=== PATIENT | male | born 1945 | race Caucasian/White ===

== ENCOUNTER 2016-05-16 12:52 | Inpatient (IN) ==
[2016-05-16 14:04] LABS: MANUAL DIFF NEEDED? NO
[2016-05-16 14:26] LABS: BASO% 0.3 % (0.0-0.8); EOS# 0.21 X1000 (0.0-0.7); EOS% 3.3 % (0.0-10.0); HEMATOCRIT 33.6 % (42.0-52.0); HEMOGLOBIN 10.4 g/dL (14.0-18.0); IMM GRAN# 0.03 X1000 (0.0-0.04); IMM GRAN% 0.5 % (0.0-0.5); LYMPH% 9.5 % (20.5-51.1); MCH 26.1 PG (27-31); MCV 84.2 FL (81-99); MONO# 0.31 X1000 (0.11-0.59); MONO% 4.9 % (1.7-9.3); MPV 10.5 FL (7.4-10.4); NEUT% 81.5 % (42.2-75.2); PLT 227 X1000 (130-400); RBC 3.99 XMIL (4.7-6.1)
[2016-05-16 14:30] LABS: INR 1.07; PROTIME 11.3 Seconds (9.2-11.7); PTT 26.7 Seconds (22.0-36.0)
[2016-05-16 14:36] LABS: ALBUMIN 3.1 g/dL (3.5-5.0); CALCIUM 8.7 mg/dL (8.8-10.2); MAGNESIUM 1.8 mg/dL (1.5-2.7); POTASSIUM 3.2 mmol/L (3.5-5.1); TOTAL BILIRUBIN 0.35 mg/dL (0.20-1.00); TOTAL PROTEIN 6.7 g/dL (6.3-8.3)
--- NOTE | 2016-05-16 14:44 | PROVIDER DOCUMENTATION ---
HPI-Chest Pain - General Chief Complaint: Palpitations Stated Complaint: CP,HEART RACING Time Seen by Provider: 05/16/16 13:14 Source: patient, family Allergies/Adverse Reactions: Patient Allergies Allergy/AdvReac Type Severity Reaction Status Date / Time No Known Allergies Allergy Verified 05/16/16 13:12 Home Medications: Home Medication List Medication Instructions Recorded Confirmed Last Taken Type Alfuzosin E.r. [Uroxatral] 10 mg PO DAILY 04/09/15 05/16/16 05/15/16 History Atorvastatin Calcium [Lipitor] 20 mg PO QHS 04/09/15 05/16/16 05/15/16 History Cyanocobalamin 1,000 microgm IM DIRECTED 04/09/15 05/16/16 05/16/16 History Duloxetine [Cymbalta] 60 mg PO DAILY 04/09/15 05/16/16 05/16/16 History Finasteride 5 mg PO DAILY 04/09/15 05/16/16 05/16/16 History Glimepiride [Amaryl] 4 mg PO BID 04/09/15 05/16/16 05/16/16 History Lorazepam [Ativan] 0.5 mg PO QHS 04/09/15 05/16/16 05/15/16 History Omeprazole [Prilosec] 20 mg PO DAILY 04/09/15 05/16/16 05/15/16 History Carvedilol [Coreg] 6.25 mg PO BID #60 tablet 04/10/15 05/16/16 05/16/16 Rx Hydralazine [Apresoline] 100 mg PO TID #90 tablet 04/10/15 05/16/16 05/16/16 Rx Potassium Chloride 20 meq PO DAILY #0 04/10/15 03/21/16 05/16/16 Rx Aspirin [Aspirin EC] 81 mg PO DAILY #0 12/16/15 05/16/16 05/15/16 Rx Diltiazem C.d. [Cardizem Cd] 180 mg PO DAILY #30 capsule 03/28/16 05/16/1605/16 Rx Furosemide [Lasix] 80 mg PO BID #60 tablet 03/28/16 05/16/16 05/16/16 Rx Iron Carbonyl/Vit C/Vit B12/FA 1 each PO BID #60 tablet 03/28/16 05/16/16 Rx [Icar-C Plus] - History of Present Illness-CP Nature of Presenting Problem: 70 y/o M presented with chest pain that started this morning, left chest, non radiating associated with racing heart and progressive SOB. He denies sweating, nausea or dizziness. He was diagnosed with Afib last month but was taken off anticoagulants due to his hx of LGIB. Location: reports: substernal Chest Pain Radiation: reports: no radiation Quality of Pain: reports: pressure Severity in ED: mild Onset/Duration: 1-3 hours ago Timing: gone now Context/Activities at Onset: reports: rest Modifying Factors: improves with: nothing Associated Symptoms: reports: shortness of breath Similar Symptoms Previously?: Yes Recently Seen Here or By Another Healthcare Provider: Yes Review of Systems - Adult - REVIEW OF SYSTEMS - ADULT Constitutional: reports: no symptoms reported Eyes: reports: no symptoms reported Ears, Nose, Mouth & Throat: reports: no symptoms reported Cardiovascular: reports: chest pain, palpitations Respiratory: reports: dyspnea on exertion, shortness of breath Gastrointestinal: reports: no symptoms reported Genitourinary: reports: no symptoms reported Musculoskeletal: reports: no symptoms reported Neurological: reports: no symptoms reported Past History - Adult - PAST MEDICAL HISTORY-ADULT Review of Records: reports: Nursing Assessment Review Major Childhood Illnesses: reports: denies history Cardiovascular: reports: CHF, HTN Respiratory: reports: denies history Gastrointestinal: reports: hepatitis, hemorrhoids Genitourinary: reports: kidney disease, prostatitis Neurological: reports: CVA. denies: stroke deficits, dementia Endocrine/Immune: reports: Diabetes - IMMUNIZATION STATUS Childhood Immunizations: See Nurse Assessment Flu Vaccine: See Nurse Assessment Physical Exam-General - PHYSICAL EXAM-ADULT Initial Vital Signs Reviewed: Yes - CONSTITUTIONAL General Appearance: appears well, mild distress - EYES Eyes: PERRL/EOMI - HEAD, EARS, NOSE, MOUTH & THROAT HENMT: normocephalic/atraumatic - NECK Neck: full range of motion - RESPIRATORY Respiratory: lungs clear, increased rate - CARDIOVASCULAR Cardiovascular: tachycardia - GASTROINTESTINAL (ABDOMEN) Abdominal Exam: normal bowel sounds, soft - MUSCULOSKELETAL Extremity: swelling Peripheral Pulses: dorsalis-pedis (R): 1+, dorsalis-pedis (L): 1+ - NEUROLOGIC Neurologic: grossly normal - PSYCHIATRIC Psych/Mental Status: oriented x 3 Progress - PLAN OF CARE/RESULTS Progress/Plan/Lab Results: Vital Signs - 24 hr 05/16/16 05/16/16 05/16/16 12:59 13:16 13:36 Temperature 97.9 F Pulse Rate 153 H 106 H 112 H Respiratory 20 25 H 25 H Rate Blood Pressure 165/62 120/81 120/81 O2 Sat by Pulse 96 94 L 93 L Oximetry Laboratory Tests 05/16/16 05/16/16 05/16/16 13:50 13:50 13:50 WBC 6.30 RBC 3.99 L Hgb 10.4 L Hct 33.6 L MCV 84.2 MCH 26.1 L MCHC 31.0 L RDW Std Deviation 20.5 H Plt Count 227 MPV 10.5 H Immature Gran % (Auto) 0.5 Neut % (Auto) 81.5 H Lymph % (Auto) 9.5 L [place] % (Auto) 4.9 Eos % (Auto) 3.3 Baso % (Auto) 0.3 Immature Gran # (Auto) 0.03 Neut # (Auto) 5.13 Lymph # (Auto) 0.60 L [place] # (Auto) 0.31 Eos # (Auto) 0.21 Baso # (Auto) 0.02 PT INR PTT (Actin FS) Sodium 142 Potassium 3.2 L Chloride 103 Carbon Dioxide 25 Anion Gap 14 BUN 29 H Creatinine 2.3 H Estimated GFR/1.73 m2 28 BUN/Creatinine Ratio 13 Glucose 262 H Calculated Osmolality 298 Calcium 8.7 L Magnesium 1.8 Total Bilirubin 0.35 AST 13 ALT 12 Alkaline Phosphatase 105 Creatine Kinase 20 L Troponin T Erq-S-Gxcpwudhrtv Pept 1809 H Total Protein 6.7 Albumin 3.1 L Globulin 3.6 Albumin/Globulin Ratio 0.9 05/16/16 05/16/16 13:50 13:50 WBC RBC Hgb Hct MCV MCH MCHC RDW Std Deviation Plt Count MPV Immature Gran % (Auto) Neut % (Auto) Lymph % (Auto) [place] % (Auto) Eos % (Auto) Baso % (Auto) Immature Gran # (Auto) Neut # (Auto) Lymph # (Auto) [place] # (Auto) Eos # (Auto) Baso # (Auto) PT 11.3 INR 1.07 PTT (Actin FS) 26.7 Sodium Potassium Chloride Carbon Dioxide Anion Gap BUN Creatinine Estimated GFR/1.73 m2 BUN/Creatinine Ratio Glucose Calculated Osmolality Calcium Magnesium Total Bilirubin AST ALT Alkaline Phosphatase Creatine Kinase Troponin T 0.032 Neu-O-Xlobpsrsvsl Pept Total Protein Albumin Globulin Albumin/Globulin Ratio - EKG 1 Time of EKG reading by physician:: 13:10 EKG Read and Signed by:: Kiki Issa EKG Interpretation (*Must complete 3 of following elements*): Abnormal Rate: 131 Rhythm: irregular Comments: Atrial flutter vs Afib - CONSULTS/PCP/HOSPITALIST Notification #1 *Consult/PCP/Hospitalist*: Dr. Key Time Discussed: 14:46 Reason/Comments: Afib with chest pian Consult Disposition: Admit Departure - Departure Time of Disposition Order: 14:49 DIAGNOSIS: Atrial fibrillation and flutter, Chest pain at rest, Hypokalemia Disposition: ADMITTED INPATIENT 09 Certified Medical Emergency: Emergent Condition: Fair
--- NOTE | 2016-05-16 15:33 | Diag Imaging Result Document ---
PROCEDURE NAME: CHEST-2 VIEWS - 05/16/2016 TWO VIEWS OF THE CHEST: FINDINGS: There is blunting of the costophrenic angles with apparently more fluid on the left than the right. The heart size is at the upper limits of normal. Compared to 03/21/2016, there has been very little change. IMPRESSION: Bilateral small pleural effusions, stable since 03/21/2016.
--- NOTE | 2016-05-16 15:46 | EKG Report ---
Test Performed on : 05/16/2016 12:58:05 PM Test Reason : PALPITATIONS Blood Pressure : / mmHG Vent. Rate : 131 BPM Atrial Rate : 300 BPM P-R Int : 000 ms QRS Dur : 088 ms QT Int : 280 ms P-R-T Axes : 000 032 -83 degrees QTc Int : 413 ms Atrial flutter. with variable AV block. ST & T wave abnormality, consider inferolateral ischemia Abnormal ECG When compared with ECG of 22-MAR-2016 05:53, Atrial flutter. has replaced Atrial fibrillation. ST now depressed in Lateral leads T wave inversion now evident in Inferior leads Inverted T waves have replaced nonspecific T wave abnormality in Lateral leads Unconfirmed Result
[2016-05-16] MEDS: POTASSIUM CHLORIDE 40 MEQ in 1/2 NS 1,000 ML IV SCH ×2 (15:58→18:57)
--- NOTE | 2016-05-16 17:12 | HISTORY AND PHYSICAL ---
PRIMARY CARE PHYSICIAN: Dr. Meek. CHIEF COMPLAINT: Chest pain. HISTORY OF PRESENT ILLNESS: Mr. Kern is a 70-year-old male with a past medical history of hypertension, chronic kidney disease, CVA, coronary artery disease, sleep apnea, hypertension, atrial fibrillation, left renal mass, microcytic anemia and pulmonary nodule, who presents to the emergency room on day of admission reporting left anterior chest pain, nonradiating, that began this morning, lasted for minutes while he was sitting watching TV. He reports no associated symptoms of dyspnea or diaphoresis. He does report that he was recently admitted and discharged on March 28 of last month for new onset atrial fibrillation/atrial flutter. During that time he did also have a GI bleed and was unable to have anticoagulants. He did receive an iron infusion yesterday to note as well. He has followed up outpatient with Dr. 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 On presentation today he is in a atrial fibrillation/atrial flutter, initial rate of 150s. He was noted as well to have hypokalemia at 3.2, his hemoglobin and hematocrit is 10.4 and 33.6, which appears to be what it was with his last discharge. He did have an elevated D-dimer at 2.75. He denies any additional symptoms. He will be admitted for further evaluation and monitoring and regulating his atrial fibrillation/atrial flutter. ALLERGIES: No known allergies. MEDICATIONS: Pending reconciliation. FAMILY HISTORY: Positive for coronary artery disease, positive for CVA with his brother. PAST MEDICAL HISTORY: 1. Chronic kidney disease. Sees Dr. Hayes in [place]. 2. CVA. 3. Hypertension. 4. Sleep apnea. 5. Atrial fibrillation. 6. Left renal mass, followed by Dr. Gonzalez. 7. NV. 8. Diabetes. 9. Coronary artery disease. 10. Kidney stones. 11. Microcytic anemia. 12. Pulmonary nodule. PAST SURGICAL HISTORY: 1. Cholecystectomy. 2. Hernia repair. 3. Prostate biopsy. 4. Lithotripsy. SOCIAL HISTORY: Patient is a former smoker. He has been quit greater than 30 years. He does still use smokeless tobacco. He denies any alcohol or drug use. REVIEW OF SYSTEMS: Positive findings per HPI. No additional reported symptoms. Ten point review of systems reviewed. DIAGNOSTIC DATA: EKG shows atrial flutter versus atrial fibrillation. Chest x-ray; bilateral pleural effusions, small, stable in comparison to previous. Labs: CBC; white count 6.30, hemoglobin and hematocrit 10.4 and 33.6, platelets 227,000. BMP: Sodium 142, potassium 3.2, chloride 103, CO2 25, BUN 29, creatinine 2.3, glucose 262. Previous creatinine with admission in March was 2.4, so this appears to be at baseline. LFTs within normal limits. Magnesium was 1.8. CPK was 20. Troponin was 0.032. BMP was 1809. D-dimer was 2.75. PT 11.3, INR 1.05, PTT 26.7. PHYSICAL EXAMINATION: VITAL SIGNS: Temperature 97.9 degrees, pulse 112 and irregular, blood pressure 120/81, O2 saturation 93% on room air. HEENT: Normocephalic, atraumatic. Mucous membranes moist. NECK: Supple. No JVD. CHEST: Bilateral breath sounds clear, diminished in the bases. No accessory muscle use noted. CARDIOVASCULAR: Irregular rate. Normal S1, S2. ABDOMEN: Abdomen is soft, nontender, nondistended. Positive bowel sounds. EXTREMITIES: Trace amount of edema. NEUROLOGIC: Patient is alert and oriented x4. No neurological deficits noted. ASSESSMENT AND PLAN: 1. Chest pain. We will admit for serial cardiac enzymes due to risk factors. We will also consult Cardiology for evaluation as well. Could be also symptomatic to his atrial fibrillation flutter atrial fibrillation. 2. Atrial fibrillation/atrial flutter. We will try Cardizem q.6h and consult Cardiology for any other input as well. He is not able to tolerate anticoagulants due to a history of gastrointestinal bleed. 3. Anemia. This appears to be at baseline from his recent admission. He denies any known bleeding. We will continue to follow. 4. Chronic kidney disease. This appears to be at his baseline compared to his previous records. Aware. 5. Elevated D-dimer. This may need to be further evaluated with a V/Q scan or a venous Doppler. He did have those on his recent admission, but he does have risk factors with atrial fibrillation and recent admission. 6. Hypertension. We will continue medications and continue to follow. 7. Diabetes type 2. We will perform pattern fingerstick blood sugars and sliding scale insulin. 8. Further orders pending physician evaluation. Dictated by JOSE Billy for Rinku Crocker MD cc: JOSE Billy MD
[2016-05-16] MEDS ORDERED: TYLENOL PO PRN (17:37)
[2016-05-16] MEDS ORDERED: ZOFRAN IV PRN (17:37)
[2016-05-16] MEDS: PROTONIX IV SCH (18:27)
[2016-05-16] MEDS: SODIUM CHLORIDE 0.9% INJ SCH (18:27)
[2016-05-16] MEDS: CARDIZEM PO SCH ×2 (18:27→21:04)
[2016-05-16] MEDS: HUMULIN R SUBQ SCH ×2 (18:27→21:36)
[2016-05-16] MEDS: APRESOLINE PO SCH (18:27)
[2016-05-16] MEDS ORDERED: COREG PO SCH (21:00)
[2016-05-16] MEDS: ICAR-C PLUS PO SCH (21:03)
[2016-05-16] MEDS: LIPITOR PO SCH (21:03)
[2016-05-16] MEDS: LASIX PO SCH (21:03)
[2016-05-16] MEDS: COREG PO SCH (21:04)
[2016-05-16] MEDS: ATIVAN PO SCH (21:04)
[2016-05-17] MEDS: CARDIZEM PO SCH ×4 (03:00→20:35)
[2016-05-17] MEDS: POTASSIUM CHLORIDE 40 MEQ in 1/2 NS 1,000 ML IV SCH ×2 (03:40→14:42)
[2016-05-17] MEDS: HUMULIN R SUBQ SCH ×4 (06:25→21:50)
[2016-05-17] MEDS: UROXATRAL PO SCH (09:00)
[2016-05-17] MEDS: COREG PO SCH ×2 (09:00→20:35)
[2016-05-17] MEDS: PROSCAR PO SCH (09:00)
[2016-05-17] MEDS: LASIX PO SCH ×2 (09:00→20:35)
[2016-05-17] MEDS: CYMBALTA PO SCH (09:00)
[2016-05-17] MEDS: ICAR-C PLUS PO SCH ×2 (09:00→20:35)
[2016-05-17] MEDS: APRESOLINE PO SCH ×3 (09:00→16:45)
--- NOTE | 2016-05-17 10:06 | PROGRESS NOTE ---
DATE: 05/17/2016 SUBJECTIVE: Patient reports feeling fine. Denies any chest pain, any chest discomfort, any difficulty breathing, any fever or chills. OBJECTIVE: Vital Signs: Temperature 98.1 degrees, heart rate 61, respiratory rate 18, blood pressure 141/57, O2 saturation 94% on room air. General Examination: This is a 70-year-old male, lying in bed in no acute distress. HEENT: Head is normocephalic and atraumatic. Anicteric sclerae and pale conjunctivae. Mucous membranes moist. Neck: Supple. No JVD noted. No carotid bruits. No lymphadenopathy. No thyromegaly. Cardiovascular exam: S1 and S2 heard. No murmurs, gallops, or rubs. Regular rate and rhythm. Respiratory exam: Clear bilaterally to auscultation. No work of breathing or using accessory muscles. Abdomen: Soft, nontender to palpation. Bowel sounds present. No organomegaly. Extremities: Trace amount of edema in both lower extremities. Peripheral pulses present in both legs. Neurological exam: Patient alert and oriented x3. Able to move 4 extremities. Cranial nerves 2-12 grossly normal. LABORATORY DATA: The BMP is unremarkable today: Creatinine 2.3 with potassium 3.4, and triglycerides 107. ASSESSMENT: 1. Chest pain. 2. Atrial fibrillation/atrial flutter. 3. Anemia of chronic disease. 4. Chronic kidney disease, stage III. 5. Hypertension. 6. Diabetes type 2. PLAN: The patient has been admitted to the hospital for an episode of chest pain and chest discomfort. He was found in the ER to have an atrial fibrillation with rapid ventricular response of 150s and 160s. Patient admitted to the hospital. Initially the patient was on Cardizem CD 180 mg. By now, we have started him on Cardizem [address] Butt from cardiology has been consulted and he has started this patient on Coreg 12.5 mg p.o. b.i.d. By now, the heart rate is well controlled. The EKG shows sinus rhythm this morning. An echocardiogram has been ordered, and the result is still pending at the time of dictation. At this point, we are going to continue with the same management. Will see what cardiology has to say. Regarding anemia of chronic disease, we are going to keep checking CBC daily. For chronic kidney disease, we are going to continue checking BMP daily. Since this patient had a D-dimer today that is high and the fact that this patient has chronic kidney disease and he is not amenable to use any contrast for CT angiogram of the chest, we prefer to order a Doppler of both lower extremities to rule out any DVT. For hypertension, we will continue with the same management. The blood pressure is under control. For diabetes type 2, patient is getting Accu-Chek's checked before meals and also at bedtime, and insulin sliding scale as needed. Further recommendations to follow according to the clinical situation of the patient. cc: Rinku Crocker MD
--- NOTE | 2016-05-17 14:47 | CONSULTATION ---
DATE OF CONSULTATION: 05/17/2016 REQUESTING PHYSICIAN: Hospitalization service. REASON FOR CONSULTATION: Atrial fibrillation, paroxysmal; shortness of breath, chest discomfort. HISTORY: Mr. Kern is a 70-year-old male that I have seen previously at my office back in November of 2013. Since then, he has been admitted to this hospital with paroxysmal atrial fibrillation. At the time of this admission on May 16, he reported noticing an episode of chest discomfort, tightness, achiness, somewhat sharp. That made him seek medical attention. He presented to the ER on the day of admission. They noted initially atrial fibrillation with rapid response. He ended up converting rather quickly to sinus rhythm, and he has been admitted to the hospital for further evaluation. At the time of prior admission, they did a ventilation perfusion scan. Dr. Zepeda consulted on him. No evidence of pulmonary embolism was noted. The patient is basically feeling back to his normal self. I am seeing him on May 17 at about 10:30 in the morning. PAST MEDICAL HISTORY: The patient's past history is positive for hypertension. He has a history of diabetes mellitus type 2. He has had prostatic hypertrophy. He has gout. The patient has had a previous stroke. He has been diagnosed with sleep apnea syndrome. He has had previous coronary heart disease. On 11/22/2009, he showed 30% plaque in the right coronary artery and also mild plaque in the LAD proximally. Medical therapy was advised. At the time of the previous evaluation, I concluded that he really had a component of kidney failure. His GFR was estimated at 33 mL/min. That was placing him in a stage 3B very close to a stage 4. His LDL cholesterol was normal at 72 mg percent. He had a trivial elevation of a proBNP level. A CT scan of the abdomen that we did in November of 2013 showed bilateral renal atrophy. His history includes kidney stones, jaundice. HOME MEDICATIONS: His home medications at the time of prior admission were losartan, labetalol, hydralazine, Plavix, atorvastatin, Glucophage, glimepiride, Prilosec, allopurinol, Uroxatral, Cymbalta, lorazepam, bupropion, and Procardia. However, I do not have the current list available to me because the computer system is down. Nevertheless, the patient has continued his medical care since I saw him last time under the supervision of Dr. Meek. SURGICAL HISTORY: He has had hernia repair, cholecystectomy. SOCIAL HISTORY: He is . He has several children. has dementia. He is not a smoker, not a drinker. REVIEW OF SYSTEMS: Basically, he has very poor functional capacity. He does not feel like doing anything physically. He has lost weight. When I saw him 3 years ago, his weight was 230 pounds. His weight is down to 197. PHYSICAL EXAMINATION: Vital signs: Blood pressure 141/57, pulse 61, temperature 98.1, respirations 18. General: He is awake, alert, oriented. Neck: His jugular veins are markedly distended all the way to the angle of the jaw suggesting significant elevation of the right atrial pressure. Chest: Shows symmetrical breath sounds. They are diminished at the bases. Cardiac: Heart sounds are regular and rhythmic. I do not hear any obvious gallop or murmur. Abdomen: Obese, somewhat distended. No hepatomegaly is appreciated. No bruits noted. Extremities: Palpable pulses. No peripheral edema or significant edema is noted. Neurological: He moves 4 extremities, follows commands. I do not have any recent blood work on him. IMPRESSION: 1. Patient presenting with episode of paroxysmal atrial fibrillation and atypical chest discomfort. The patient is known to have a mild degree of coronary artery disease. 2. Chronic kidney insufficiency. The patient is probably by now in stage 4 of chronic kidney disease. 3. History of hypertension. 4. History of sleep apnea. 5. Obesity. 6. Diabetes mellitus type 2. RECOMMENDATION: We will update his echocardiogram. The last one that we have on record was done when he was in atrial fibrillation. If his ejection fraction is normal, we may have to consider pursuing further testing for renal dysfunction, which may explain his state of fluid overload. He probably has congestive heart failure, diastolic dysfunction, chronic, as the best explanation for his jugular vein distention and general fatigue. I could not necessarily exclude considering pericarditis. We will give further recommendations upon review of the echocardiogram and other tests that hopefully will be back in the next 24 to 48 hours. cc: Sonido Butt MD
[2016-05-17 16:38] LABS: HEMATOCRIT 31.5 % (42.0-52.0); HEMOGLOBIN 9.7 g/dL (14.0-18.0); MCH 26.1 PG (27-31); MCHC 30.8 g/dL (33-37); MCV 84.7 FL (81-99); MPV 10.3 FL (7.4-10.4); RBC 3.72 XMIL (4.7-6.1)
[2016-05-17] MEDS: PROTONIX IV SCH (16:45)
[2016-05-17 16:52] LABS: AGAP 13; BUN 31 mg/dL (8-22); CALCIUM 8.4 mg/dL (8.8-10.2); CHLORIDE 104 mmol/L (98-107); COSMO 295; HDL 23 mg/dL (35-55); LDL 50 mg/dL; POTASSIUM 3.4 mmol/L (3.5-5.1); SODIUM 143 mmol/L (136-145); TCO2 26 mmol/L (25-35); TRIGLYCERIDES 107 mg/dL (39-160); VLDL 21 mg/dL
[2016-05-17] MEDS: LIPITOR PO SCH (20:35)
[2016-05-17] MEDS: ATIVAN PO SCH (20:35)
--- NOTE | 2016-05-17 21:33 | EKG Report ---
Test Performed on : 05/17/2016 06:37:35 AM Test Reason : arrhythmia Blood Pressure : / mmHG Vent. Rate : 063 BPM Atrial Rate : 063 BPM P-R Int : 174 ms QRS Dur : 088 ms QT Int : 450 ms P-R-T Axes : 044 024 263 degrees QTc Int : 460 ms Normal sinus rhythm. Left ventricular hypertrophy with repolarization abnormality Inferior and lateral Twave inversion, suspicious for recent non-KELLIE [place] Abnormal ECG When compared with ECG of 16-MAY-2016 18:47, (Unconfirmed) No significant change was found Confirmed by Magaly HOLT, Artemio Bang ([id number]) on 05/18/2016 12:51:47 PM
--- NOTE | 2016-05-17 21:33 | EKG Report ---
Test Performed on : 05/16/2016 6:47:36 PM Test Reason : change in rhythm Blood Pressure : / mmHG Vent. Rate : 089 BPM Atrial Rate : 089 BPM P-R Int : 164 ms QRS Dur : 084 ms QT Int : 380 ms P-R-T Axes : 020 020 261 degrees QTc Int : 462 ms Normal sinus rhythm. Possible Left atrial enlargement ST \T\ T wave abnormality, consider inferior ischemia ST \T\ T wave abnormality, consider anterolateral ischemia Prolonged QT Consider non-KELLIE [place] Abnormal ECG When compared with ECG of 16-MAY-2016 12:58, (Unconfirmed) Sinus rhythm. has replaced Atrial flutter. T wave inversion more evident in Anterior leads Confirmed by Magaly HOLT, Artemio Bang ([id number]) on 05/18/2016 12:43:48 PM
[2016-05-17] MEDS ORDERED: HUMULIN R ONE (21:48)
[2016-05-18] MEDS: POTASSIUM CHLORIDE 40 MEQ in 1/2 NS 1,000 ML IV SCH ×3 (01:06→20:23)
[2016-05-18] MEDS: CARDIZEM PO SCH ×4 (01:06→20:24)
[2016-05-18] MEDS: HUMULIN R SUBQ SCH ×4 (06:47→20:33)
[2016-05-18] MEDS: COREG PO SCH ×2 (08:12→20:24)
[2016-05-18] MEDS: LASIX PO SCH ×2 (08:13→20:23)
[2016-05-18] MEDS: ICAR-C PLUS PO SCH ×2 (08:13→20:24)
[2016-05-18] MEDS: PROSCAR PO SCH (08:13)
[2016-05-18] MEDS: APRESOLINE PO SCH ×3 (08:13→16:33)
[2016-05-18] MEDS: CYMBALTA PO SCH (08:13)
[2016-05-18] MEDS: UROXATRAL PO SCH (08:14)
--- NOTE | 2016-05-18 11:33 | PROGRESS NOTE ---
DATE: 05/18/2016 SUBJECTIVE: Patient reports feeling fine. Denies any chest pain, any sensation of palpitation, or any fever or chills. OBJECTIVE: Vital Signs: Temperature 98.4 degrees, heart rate 67, respiratory rate 19, blood pressure 152/73, O2 saturation 97% on room air. General Examination: This is a 70-year-old, male, lying in bed, in no acute distress. HEENT: Head is normocephalic and atraumatic. Anicteric sclerae and pale conjunctivae. Mucous membranes moist. Neck: Supple. No JVD noted. No carotid bruits. No lymphadenopathy. No thyromegaly. Cardiovascular Examination: S1 and S2 heard. No murmurs, gallops, or rubs. Regular rate and rhythm. Respiratory Examination: Clear bilaterally to auscultation. No work of breathing or using accessory muscles. Abdomen: Soft, nontender to palpation. Bowel sounds present. No organomegaly. Extremities: No clubbing, cyanosis, or edema. Peripheral pulses present in both legs. Neurological Examination: Patient is alert and oriented x3. Able to move 4 extremities. Cranial nerves 2-12 are grossly normal. Laboratory Data: There are no labs from today but from yesterday, it was unremarkable. ASSESSMENT AND PLAN: 1. Chest pain. 2. Atrial fibrillation/atrial flutter. 3. Anemia of chronic disease. 4. Diastolic congestive heart failure. 5. Chronic kidney disease stage III. 6. Hypertension. 7. Diabetes type 2. PLAN: The patient has been admitted to the hospital for an episode of chest pain and was found to be in atrial fibrillation. By now, the heart rate is back to sinus rhythm. Currently, he is on Cardizem p.o. q.[address] Butt from cardiology is following this patient. They have ordered an echocardiogram which is still pending from the last two days. At this point, we are going to continue with the same management. Also, Coreg 12.5, has been added to his current treatment. At this point, we are following the lead from Dr. Butt and considering that this patient is not on any blood thinners because of recent rectal bleeding. Blood pressure is under control. For diabetes, patient is on sliding scale insulin. cc: Rinku Crocker MD
--- NOTE | 2016-05-18 14:56 | PROGRESS NOTE ---
DATE: 05/18/2016 CHIEF COMPLAINT: Swelling, shortness of breath. SUBJECTIVE: The patient is feeling better. His breathing is back to normal. He is not having any more episodes of paroxysmal atrial fibrillation. His EKG today shows sinus rhythm with diffuse ST-T abnormalities in multiple leads. That was also noted at the time of presentation. Echocardiogram has been reviewed. He has concentric LVH, hyperdynamic left ventricle. OBJECTIVE: Blood pressure 153/59, temperature 98.3, pulse 68, respirations 19. He is awake, alert, in no distress. HEENT: Unremarkable. Chest: Relatively clear to auscultation and percussion. Cardiovascular: Heart sounds are regular and rhythmic, no gallop or murmur. Abdomen: Nontender. Extremities: Showed no edema. Neurologic examination: He moves 4 extremities, follows commands. Blood work from yesterday showed: total cholesterol: 94 mg%, LDL: 50 mg%. HDL 23 mg%, triglycerides:107 mg%. His GFR estimated based on age ,body weight and creatinine level is 39 ml/min which makes him CKD III-B. IMPRESSION: 1. The patient presented with chest discomfort and was found in atrial fibrillation with rapid ventricular response. This has resolved. He is back to normal. 2. Chronic kidney insufficiency stage III-B. I suspect this is his main problem. 3. Diastolic congestive heart failure. Probably this is mediated by hypertensive cardiovascular disease and renal insufficiency. 4. Sleep apnea. 5. Obesity. 6. Diabetes mellitus type 2. RECOMMENDATIONS: From cardiology viewpoint, I would suggest to et a 24-hour urine collection for creatinine clearance and protein excretion. I would recommend to obtain a Nephrology evaluation on him. Cardiac moulton I do not think we need to worry about doing a stress test because coronary heart disease would not explain his swelling nor his high blood pressure. At any rate, we will give you further advice upon review of the requested urine collection. cc: Sonido Butt MD MTDD
[2016-05-18] MEDS: PROTONIX IV SCH (16:37)
[2016-05-18] MEDS: SODIUM CHLORIDE 0.9% INJ SCH (16:37)
[2016-05-18] MEDS: LIPITOR PO SCH (20:23)
[2016-05-18] MEDS: ATIVAN PO SCH (20:24)
[2016-05-19] MEDS: CARDIZEM PO SCH ×3 (02:24→13:54)
--- NOTE | 2016-05-19 05:43 | EKG Report ---
Test Performed on : 05/18/2016 06:26:29 AM Test Reason : arrhythmia Blood Pressure : / mmHG Vent. Rate : 066 BPM Atrial Rate : 066 BPM P-R Int : 204 ms QRS Dur : 084 ms QT Int : 426 ms P-R-T Axes : 032 043 -78 degrees QTc Int : 446 ms Normal sinus rhythm. ST \T\ T wave abnormality, consider inferior ischemia ST \T\ T wave abnormality, consider anterolateral ischemia Abnormal ECG When compared with ECG of 17-MAY-2016 06:37, (Unconfirmed) No significant change was found Confirmed by Magaly HOLT, Artemio Bang ([id number]) on 05/19/2016 9:11:33 AM
[2016-05-19] MEDS: POTASSIUM CHLORIDE 40 MEQ in 1/2 NS 1,000 ML IV SCH ×2 (06:03→09:18)
[2016-05-19] MEDS: HUMULIN R SUBQ SCH ×2 (06:04→11:56)
[2016-05-19] MEDS ORDERED: ASPIRIN EC PO SCH (09:00)
[2016-05-19] MEDS: LASIX PO SCH (09:24)
[2016-05-19] MEDS: APRESOLINE PO SCH ×2 (09:24→13:53)
[2016-05-19] MEDS: COREG PO SCH (09:24)
[2016-05-19] MEDS: ICAR-C PLUS PO SCH (09:24)
[2016-05-19] MEDS: CYMBALTA PO SCH (09:24)
[2016-05-19] MEDS: UROXATRAL PO SCH (09:25)
[2016-05-19] MEDS: PROSCAR PO SCH (09:25)
[2016-05-19 11:08] VITALS: BP 130/60
[2016-05-19 14:57] LABS: PROTEIN CREAT RATIO 0.2; UR CREAT RANDOM 44.6 mg/dL (14-26); UR PROT RANDOM 10.8 mg/dL
--- NOTE | 2016-05-20 09:57 | DISCHARGE SUMMARY ---
ADMISSION DATE: 05/16/2016 DISCHARGE DATE: 05/19/2016 CONSULTATION: Dr. Butt with cardiology. PERTINENT PROCEDURES: 1. Echocardiogram has not resulted in final results yet. 2. Chest x-ray showed bilateral small pleural effusion, stable since 03/21/2016. DISCHARGE DIAGNOSES: 1. Chest pain ruled out with a cardiology consult. Patient is chest pain-free now. 2. Atrial fibrillation/atrial flutter, now sinus rhythm. Continue with home Cardizem, and patient's Coreg has now been increased from 6.[address] Butt, and patient is not on any blood thinner secondary to recent rectal bleed. 3. Anemia of chronic disease, stable. 4. Diastolic congestive heart failure. Continue with Lasix. 5. Chronic kidney disease stage III-B, possibly worsened into stage IV. Dr. Butt ordered a 24-hour urine. We will set the patient up to see Dr. Nunn as an outpatient. 6. Hypertension, controlled. 7. Diabetes mellitus type 2. Continue with home medications. HOSPITAL COURSE: Briefly Mr. Kern is a 70-year-old male, who appears to have past medical history of chronic kidney disease. Sees Dr. Hayes In [place]. CVA, hypertension, sleep apnea, atrial fibrillation, left renal mass followed by Dr. Gonzalez, [place], diabetes mellitus type 2 orally controlled, coronary artery disease, kidney stones, microcytic anemia, pulmonary nodule. He presented to the ED with left anterior chest pain nonradiating that began on the morning of his admission. It lasted for a few minutes while he was sitting and watching TV. No associated symptoms and dyspnea or diaphoresis. He also reported that he was recently admitted and discharged on March 28 for new onset atrial fibrillation/atrial flutter. During that time he had a GI bleed and was unable to start on anticoagulants. He also had an iron infusion the day before his admission. He is followed outpatient by Dr. Butt. The patient's atrial fibrillation rate was in the 150s. He was noted to be hypokalemic at 3.2. His hemoglobin and hematocrit were 10 and 33, showed to be unstable since discharge. He did have an elevated D-dimer of 2.75. Patient was admitted for his chest pain with a cardiology consult, serial cardiac enzymes, and felt that he was symptomatic due to his atrial fibrillation/atrial flutter. Started Cardizem q. 6 hours. Again, patient could not tolerate anticoagulants due to GI bleed. The patient did undergo an echocardiogram; we are still awaiting those records. Dr. Butt felt that the patient's chronic kidney insufficiency was probably now stage IV of chronic kidney disease. He did put in for a 24-hour urine, still awaiting those results. I did want him to be evaluated by nephrology, however Dr. Key will set up for outpatient with Dr. Nunn unless the patient wants to see his regular doctor, Dr. Hayes in [place]. He also felt that his congestive heart failure, diastolic dysfunction was chronic. That is the best explanation for his jugular vein distention and general fatigue. He did not feel like a stress test was needed at this time because that would not explain his swelling nor his hypertension. Again, felt it was related to worsening kidney function. Dr. Key has assessed the patient. He feels that he is appropriate for discharge today. Patient is now back in sinus rhythm. His blood pressures are back under control. VITAL SIGNS AT TIME OF DISCHARGE: Temperature 98.3 degrees, heart rate 77, respirations 12, blood pressure is 130/60, O2 is 98% on room air. DISCHARGE DIET: Diabetic. DISCHARGE MEDICATIONS: 1. Uroxatral 2 mg p.o. daily. 2. Aspirin enteric coated 81 mg p.o. daily. 3. Lipitor 20 mg p.o. at bedtime. 4. Coreg 12.5 mg p.o. b.i.d. 5. B 12 1000 mcg IM as directed. 6. Cardizem CD 180 mg p.o. daily. 7. Cymbalta 60 mg p.o. daily. 8. Finasteride 5 mg p.o. daily. 9. Lasix 80 mg p.o. b.i.d. 10. Amaryl 4 mg p.o. b.i.d. 11. Apresoline 100 mg p.o. t.i.d. 12. Icar-C Plus one each p.o. b.i.d. 13. Ativan 0.5 mg p.o. at bedtime. 14. Prilosec 20 mg p.o. daily. 15. Potassium chloride 20 mEq p.o. daily. FOLLOWUP: Patient is being discharged home. He will need to follow up with commander internal affairs, either Dr. Nunn and/or Dr. Hayes, as well as Dr. Butt and his primary care physician, Dr. Jameel Meek. Patient can return to the ED for any worsening of symptoms. DISCHARGE TIME: 30 minutes. Dictated by JOSE Vega for Rinku Crocker MD cc: MD Jameel Christian MD Carlo G. Castillo Reginald D. Gladish, MD
--- NOTE | 2016-05-20 14:50 | ECHO REPORT ---
ORDER DATE: 05/16/2016 INTERPRETING PHYSICIAN: Dr. Butt REQUESTING PHYSICIAN: CLINICAL INDICATIONS: This is a 70-year-old male with paroxysmal atrial fibrillation, chronic kidney disease. M-MODE MEASUREMENTS: Right ventricle: 3.6 cm. Left ventricle end diastole: 4.4 cm. Left ventricle end systole: 2.5 cm. Posterior wall: 1.6 cm. Interventricular septum: 1.6 cm. Left atrium: 5.2 cm. Aortic root: 3.6 cm. SUMMARY OF 2-DIMENSIONAL IMAGIN. The left ventricular chamber is moderately to significantly enlarged. The left ventricular systolic function is hyperdynamic. Ejection fraction is estimated at 76%. The ventricle is hyperdynamic. There is moderate concentric left ventricular hypertrophy. 2. Left atrium appears to be moderately to significantly dilated. 3. Right ventricle is also moderately enlarged. 4. The inferior vena cava is mildly enlarged, suggesting elevation of the right atrial pressure. 5. The tricuspid valve shows no significant regurgitation, and therefore the pulmonary systolic pressure cannot be accurately calculated. 6. Pulmonic valve shows trace regurgitation. 7. The aortic valve has 3 cusps. Color flow mapping indicates mild degree of regurgitation. 8. There is no aortic stenosis. 9. Mitral valve opens normally. Color flow mapping indicates mild degree of regurgitation. 10.Pulse wave Doppler of mitral inflow shows normal E/A ratio. 11.Tissue Doppler of septal and lateral mitral annulus averages 7.5 cm. 12.Pulse wave Doppler of pulmonary venous flow is normal. 13.There is no diastolic dysfunction. 14.There is a trace of pericardial effusion. 15.There is a left pleural effusion. Clinical correlation is recommended. cc: MD Wanda Mccarthy CRNP
[2016-06-13] MEDS ORDERED: CYANOCOBALAMIN IM SCH (09:00)
== END 2016-05-19 14:42 | disposition home or self-care (01) ==
LOC: ED 12:52 → 3S 16:59
PROVIDERS: ATTEND Internal Medicine

== ENCOUNTER 2016-06-28 07:28 | Inpatient (IN) ==
[2016-06-28 08:38] LABS: MANUAL DIFF NEEDED? NO
[2016-06-28 08:41] LABS: URINE CULTURE NEEDED? NO; URINE SOURCE CLEAN CATCH
[2016-06-28 08:46] LABS: BASO% 0.3 % (0.0-0.8); EOS# 0.38 X1000 (0.0-0.7); EOS% 4.9 % (0.0-10.0); HEMATOCRIT 35.9 % (42.0-52.0); HEMOGLOBIN 11.6 g/dL (14.0-18.0); IMM GRAN# 0.05 X1000 (0.0-0.04); IMM GRAN% 0.6 % (0.0-0.5); LYMPH# 0.62 X1000 (1.2-3.4); MCH 28.2 PG (27-31); MCHC 32.3 g/dL (33-37); MCV 87.3 FL (81-99); MONO# 0.28 X1000 (0.11-0.59); MONO% 3.6 % (1.7-9.3); MPV 9.8 FL (7.4-10.4); NEUT% 82.6 % (42.2-75.2); PLT 264 X1000 (130-400); RBC 4.11 XMIL (4.7-6.1)
[2016-06-28 08:48] LABS: INR 1.05; PROTIME 11.1 Seconds (9.2-11.7); PTT 27.5 Seconds (22.0-36.0)
[2016-06-28 08:58] LABS: ALBUMIN 3.3 g/dL (3.5-5.0); CALCIUM 8.9 mg/dL (8.8-10.2); TOTAL BILIRUBIN 0.48 mg/dL (0.20-1.00); TOTAL PROTEIN 7.3 g/dL (6.3-8.3)
[2016-06-28 08:59] LABS: BILIRUBIN URINE NEGATIVE (NEGATIVE); BLOOD URINE NEGATIVE (NEGATIVE); COLOR YELLOW; GLUCOSE URINE NEGATIVE (NEGATIVE); LEUKOCYTES URINE NEGATIVE (NEGATIVE); NITRITE URINE NEGATIVE (NEGATIVE); PH URINE 5.5; PROTEIN URINE 200 mg/dL (NEGATIVE); SP GRAVITY URINE 1.018; TURBIDITY URINE HAZY (CLEAR); UROBILINOGEN URINE NORMAL (NORMAL)
[2016-06-28 09:09] LABS: UR EPITHELIAL CELLS <10 /HPF (<10); URINE BACTERIA NEGATIVE /HPF; URINE MICRO REVIEW NEEDED? YES; URINE RBC <10 /HPF (<10); URINE WBC <10 /HPF (<10)
[2016-06-28 09:18] LABS: URINE CASTS NONE SEEN
[2016-06-28] MEDS ORDERED: KLOR-CON PO ONE (10:05)
[2016-06-28] MEDS ORDERED: NS + KCL 20 MEQ 1,000 ML IV ONE (10:30)
[2016-06-28 11:45] LABS: IRON SATURATION 27 %; TIBC 158 ug/dL; TOTAL IRON 43 ug/dL (53-167); UNBOUND IRON 115 ug/dL (112-346)
[2016-06-28 12:03] LABS: FERRITIN 591 ng/mL (30-400)
[2016-06-28] MEDS ORDERED: TYLENOL PO PRN (12:06)
[2016-06-28] MEDS ORDERED: NS 1,000 ML IV ONE (12:06)
[2016-06-28] MEDS ORDERED: ZOFRAN IV PRN (12:06)
[2016-06-28] MEDS: PROTONIX 80 MG in NS 80 ML IV SCH ×2 (12:47→22:50)
[2016-06-28] MEDS: POTASSIUM CHLORIDE 20 MEQ/SWI 20 MEQ/100 ML IVPB IV SCH ×2 (12:52→21:53)
[2016-06-28] MEDS: CARAFATE LIQUID PO SCH ×2 (13:01→20:55)
--- NOTE | 2016-06-28 13:43 | HISTORY AND PHYSICAL ---
PRIMARY CARE PROVIDER: Dr. Meek. GREEN JOBS TRAINER: Dr. Gill. CDL B DRIVER: Dr. Butt. COMPUTER SUPPORT SPECIALIST INSTRUCTOR: Dr. Nunn. UROLOGIST: Dr. Owens. CHIEF COMPLAINT: Bloody diarrhea. HISTORY OF PRESENT ILLNESS: Mr. Scar Kren is a 70-year-old male , who states that around 0530 started having bloody clots and bright red stool. He has a medical history of having a GI bleed in November 2015 and during that time Dr. Gill performed a colonoscopy which showed a mid sigmoid colon diverticula with a clot that was oozing and hemostasis at that time was achieved. His most recent admit was for atrial fibrillation with RVR and a- flutter and at that time had converted at some point, back to normal sinus rhythm in March and he had also had chest pain but no [place]. In April he was again admitted for chest pain, atrial fibrillation with flutter with followup by Cardiology and converted back to sinus rhythm. He was on Plavix which had been stopped I believe in April secondary to risk of GI bleed. He is currently on aspirin 81 mg daily, but no other blood thinners. He denies taking any medications that could irritate the gastric lining. Orthostatic vital signs revealed that he is hypotensive upon standing. He can drop from as high as 170 systolic in the supine position to 97 systolic in standing position. He has only complained of dizziness for today. He has no abdominal pain. He states he is actually hungry and ate a large breakfast this morning. The blood clots and stools were in large amounts according to the , to the point that when he was walking from his bed to the bathroom he was dripping. EKG revealed that he is actually in normal sinus rhythm. He has been off the Plavix, will stop the baby aspirin for now. He will be on clears. We will do IV Protonix drip along with Carafate and monitor serial hemoglobin, hematocrit. Will transfer to the [facility] given his significant orthostatic hypotension. PAST MEDICAL HISTORY: CKD stage 3, CVA, hypertension, obstructive sleep apnea, paroxysmal atrial fibrillation, left renal mass followed by Dr. Gonzalez. Myocardial infarction with coronary artery disease, diabetes mellitus type 2. Kidney stones. Iron deficiency anemia with history of GI bleed and diverticulosis, and pulmonary nodule. SURGICAL HISTORY: Cholecystectomy, hernia repair, prostate biopsy and lithotripsy. Last colonoscopy was 12/16/2015 in which he had a mid sigmoid colon diverticula, clot and oozing that was hemostasis achieved. SOCIAL HISTORY: Quit smoking greater than 30 years ago. He still uses smokeless tobacco. Denies alcohol or illicit drug use. FAMILY HISTORY: Is positive for coronary artery disease and positive for CVA in a brother. ALLERGIES: No known drug allergies. HOME MEDICATIONS: Uroxatral 10 mg p.o. daily. Aspirin enteric-coated 81 mg p.o. daily. Lipitor 20 mg p.o. nightly. Coreg 12.5 mg p.o. twice daily. Cyanocobalamin 1000 mcg IM as directed. Cardizem 180 mg p.o. daily. Cymbalta 60 mg p.o. daily. Finasteride 5 mg p.o. daily. Lasix 80 mg p.o. twice daily. Amaryl 4 mg p.o. twice daily. Hydralazine 100 mg p.o. 3 times a day. Icar C Plus 1 tab p.o. twice daily. Ativan 0.5 mg p.o. nightly. Prilosec 20 mg p.o. daily and potassium chloride 20 mEq p.o. daily. REVIEW OF SYSTEMS: Fourteen point review of systems were complete and all were negative for those mentioned in above HPI. Denies chest pain. Denies any pain at all. Denies cough. No other symptoms. LABORATORY DATA: White blood cells 7000, hemoglobin 11, hematocrit 30, 35 on admit, 30 now. Platelet count 264,000. INR 1.05, PTT is 27.5. Sodium 142, potassium 3.0, BUN 29, creatinine is 1.9, glucose 205. Calcium 8.9, total bilirubin 0.48. AST 13, ALT 14 and albumin 3.3. Amylase 30, lipase 24. Urinalysis 200 protein, otherwise negative. IMAGING: No current imaging. Will order an abdominal x-ray. PHYSICAL EXAMINATION: VITAL SIGNS: Temperature not recorded. Heart rate 81, respiratory rate 20, blood pressure 160/86, O2 saturation 97% on room air. Actually the temperature is 97.9 degrees , 5 feet 11 inches tall, 175 pounds. BMI 24.4. GENERAL: Mr. Scar Kern is a 70-year-old male who appears anemic. He is able to answer all questions appropriately and he is in no acute distress. Resting comfortably in bed. HEENT: Atraumatic, normocephalic. Pupils equal, round, reactive to light. Extraocular movements intact. Mucous membranes dry. NECK: No JVD or carotid bruits noted. CARDIOVASCULAR: S1, S2. Regular rate and rhythm. No rubs, gallops, or murmurs. PULMONARY: Clear to auscultation. Bilateral breath sounds. No accessory muscle use or work of breathing noted. GI: Soft, nontender, nondistended. Positive bowel sounds x4. EXTREMITIES: Trace lower extremity edema. +2 dorsalis and radial pulses. NEUROLOGIC: A and O x4. Moves all extremities equally. SKIN: Warm, dry, intact and pale. ASSESSMENT AND PLAN: 1. Lower gastrointestinal bleed. He has got bright red blood with darker clots started since 529 this morning. He does state that he had a large breakfast along with it. Complains of lightheadedness and has orthostasis upon standing confirmed with orthostatics vital signs. He takes an aspirin daily which we will hold and hold any other gastric irritating medications. Will start him on IV Protonix drip, do serial hemoglobin and hematocrit, start him on Carafate. He will have clear liquid diet for now and consult Gastroenterology. There has not been any abdominal imaging so we will do an abdominal upright x-ray, upright and supine x-ray. 2. Orthostatic hypotension. Will do q.12 hours orthostatics to monitor for safety of future ambulation. 3. Paroxysmal atrial fibrillation. Currently in normal sinus rhythm. Keep electrolytes replaced. 4. Hypokalemia. He has received PO and IV supplementation and will recheck in the morning. No changes on EKG. 5. Acute blood loss anemia secondary to #1. Will replace as needed. Type and screen is current. 6. CKD stage 3. Creatinine is 1.9. It is actually better than his baseline. Baseline looks like it is anywhere from 1.9 up as high as 3.9. Will monitor closely. 7. Diabetes mellitus type 2. Pattern blood glucoses with sliding scale insulin. 8. History of CVA, stable. 9. Hypertension currently with orthostasis. Will monitor closely. 10. Obstructive sleep apnea. 11. History of coronary artery disease and myocardial infarction. No chest pain at this time. 12. Deep venous thrombosis prophylaxis, SCDs. 13. Gastrointestinal prophylaxis. See #1. 14. Tobacco abuse. Cessation discussed. He currently uses smokeless tobacco. Dictated by JOSE Camarena for Bharat Escobar MD cc: JOSE Camarena MD Kenneth E. Mashburn, MD Khurshid Yousuf, MD Luis N. Villanueva, MD William E. Hughes, MD Reginald D. Gladish, MD Naveen T. Lobo, MD pt examined, likely lower gi bleed, diverticular, will follow closely, anticipate will need tranfusion, APENOT MTDD
[2016-06-28 15:49] LABS: MANUAL DIFF NEEDED? NO
[2016-06-28 15:53] LABS: BASO% 0.1 % (0.0-0.8); EOS# 0.35 X1000 (0.0-0.7); EOS% 4.9 % (0.0-10.0); HEMATOCRIT 24.3 % (42.0-52.0); HEMOGLOBIN 7.9 g/dL (14.0-18.0); IMM GRAN# 0.05 X1000 (0.0-0.04); IMM GRAN% 0.7 % (0.0-0.5); LYMPH# 0.69 X1000 (1.2-3.4); LYMPH% 9.6 % (20.5-51.1); MCH 28.6 PG (27-31); MCHC 32.5 g/dL (33-37); MONO# 0.31 X1000 (0.11-0.59); MONO% 4.3 % (1.7-9.3); MPV 9.1 FL (7.4-10.4); NEUT% 80.4 % (42.2-75.2); PLT 227 X1000 (130-400); RBC 2.76 XMIL (4.7-6.1)
[2016-06-28] MEDS ORDERED: GOLYTELY PO ONE (16:00)
[2016-06-28] MEDS ORDERED: NS 500 ML ONE ×2 (16:02→17:51)
[2016-06-28] MEDS: LIPITOR PO SCH (20:56)
[2016-06-28] MEDS: AMARYL PO SCH (20:59)
[2016-06-28] MEDS: ICAR-C PLUS PO SCH (21:00)
[2016-06-28] MEDS: ATIVAN PO SCH (21:01)
[2016-06-28] MEDS: HUMULIN R SUBQ SCH ×2 (21:10→21:13)
--- NOTE | 2016-06-28 21:15 | CONSULTATION ---
DATE OF CONSULTATION: 06/28/2016 REFERRING PHYSICIAN: Korey Escobar M.D. PRIMARY CARE PHYSICIAN: Guerrero Meek M.D. PRIMARY ADMINISTRATIVE OFFICE SPECIALIST: Esteban Gill M.D. PRIMARY AUTOMATIC FURNACE OPERATOR: Sonido Butt M.D. PRIMARY SALES REVIEW CLERK: Jason Nunn M.D. PRIMARY UROLOGIST: Rolando Owens M.D. INDICATION FOR CONSULTATION: Bloody diarrhea. HISTORY OF PRESENT ILLNESS: Mr. Kern is a 70-year-old white male who has a history of recurrent diverticular bleeding. Approximately 5:30 a.m. he awakened with the urge to defecate. He passed copious amounts of bright red blood with clots. Since that time, he had approximately 6 bloody bowel movements in the emergency room and immediately prior to consultation passed copious amounts of blood in [facility]. It was initially thought that he was hemodynamically stable. However, he subsequently developed orthostatic hypotension associated with the recurrent bleeding. His hemoglobin has dropped from his baseline of 10.4 to 7.9 with hematocrit of 24.3. We are asked to perform urgent evaluation. He denies the use of the NSAIDs. He is currently taking an aspirin 81 mg. He was previously on Plavix and aspirin for cardiac arrhythmia including atrial fibrillation with atrial flutter. However, due to his recurrent GI bleeding his anticoagulation has been discontinued. He reports that he is currently feeling lightheaded and weak but denies other symptoms. Specifically, he denies nausea with vomiting, abdominal pain and low back pain. PAST MEDICAL HISTORY: 1. Chronic kidney disease. 2. CVA. 3. Hypertension. 4. Obstructive sleep apnea. 5. Paroxysmal atrial fibrillation. 6. Atrial flutter. 7. Left renal mass followed by Dr. Gonzalez. 8. Myocardial infarction. 9. Coronary artery disease. 10. Diabetes mellitus 2. 11. Kidney stones. 12. Iron deficiency anemia. 13. Diverticulosis. 14. Pulmonary nodule. 15. Large gastric polyp. 16. Multiple colon polyps (tubular adenomas). 17. Gout. 18. BPH. 19. Obstructive sleep apnea. 20. Kidney stones. PAST SURGICAL HISTORY: 1. Cholecystectomy. 2. Umbilical hernia repair. 3. Right inguinal hernia repair. 4. Prostate biopsy. 5. Lithotripsy. 6. Colonoscopy on 12/16/2015 which revealed a bleeding midsigmoid colon diverticula. SOCIAL HISTORY: The patient is a previous smoker. He has not smoked for over 30 years. He continues to use smokeless tobacco. There is no history of alcohol or recreational drug use. FAMILY HISTORY: Positive for coronary artery disease and CVA. MEDICATION ALLERGIES: None. HOME MEDICATIONS: 1. Potassium chloride. 2. Omeprazole. 3. Ativan. 4. Icar-C. 5. Apresoline. 6. Amaryl. 7. Lasix. 8. Finasteride. 9. Cymbalta. 10. Cardizem CD. 11. Vitamin B12. 12. Coreg. 13. Lipitor. 14. Aspirin 81 mg. 15. Uroxatral. PHYSICAL EXAM: General: He is in no acute distress and is sitting comfortably on the side of the bed. Vital signs: His blood pressure is 155/64, pulse of 87, respiration 20, temperature of 97.8 degrees. Earlier today he was significantly orthostatic. In general, he is a pale white male. HEENT: Is negative for jaundice. His conjunctivae are pale. His oropharyngeal mucosa membranes are dry. Pulmonary: Lungs are clear to auscultation with normal respiratory effort. Cardiovascular Examination: Reveals regular rate and rhythm with no gallops or rubs. Abdominal Exam: Reveals normoactive bowel sounds. The abdomen is soft and nontender. Extremities: Bilaterally are negative for cyanosis, clubbing or edema. OBJECTIVE DATA: Reveals a hemoglobin of 7.9 with hematocrit of 24.3 and a white count of 7.16. He has 227,000 platelets. PT is 11.1 with an INR of 1.05 and a PTT of 27.5. Sodium is 142, potassium 3.0, chloride 102, CO2 26, BUN 29, creatinine 1.3 with a glucose of 205. His calcium is 8.9, total bilirubin 0.48, AST 13, ALT 14, alkaline phosphatase 130. His total protein is 7.3 with an albumin of 3.3. His iron is 43 with a ferritin of 591. His amylase is 30 with a lipase of 24. His vitamin B12 is 484 and his folic acid is 34.6. IMPRESSION: 1. Acute gastrointestinal bleed most likely secondary to diverticular bleed. 2. History gastric polyps. 3. History of colon polyps. 4. History of reflux disease. 5. Anemia. 6. Orthostatic hypotension. 7. Chronic kidney disease. RECOMMENDATION: 1. Because of his active bleeding, I recommend a rapid GoLYTELY bowel prep followed by colonoscopy today. However, the patient does not want the prep. He is willing to drink it over the next 24 hours but not right now. 2. Please transfuse 2 units of packed red blood cells. 3. Because of his orthostatic hypotension and ongoing bleeding, I recommend he be transferred to the ICU for more intensive monitoring and management. 4. Continue Protonix drip pending further evaluation. 5. Consent was discussed and questions were answered. We reviewed the risk of bleeding if he elects to delay his procedure. He expresses understanding. 6. The patient thinks he would like Dr. Gill to perform his endoscopy on Thursday as he is "tired" and wants to sleep. 7. Dr. Esteban Gill will return on Thursday to assume care. Additional recommendations to follow per Dr. Gill. cc: Rolando Owens MD MTDD
[2016-06-29 06:03] LABS: MANUAL DIFF NEEDED? NO
[2016-06-29 06:21] LABS: ALBUMIN 2.5 g/dL (3.5-5.0); MAGNESIUM 1.7 mg/dL (1.5-2.7); POTASSIUM 3.3 mmol/L (3.5-5.1); TOTAL BILIRUBIN 0.7 mg/dL (0.20-1.00); TOTAL PROTEIN 5.3 g/dL (6.3-8.3)
[2016-06-29 06:22] LABS: BASO% 0.3 % (0.0-0.8); EOS# 0.35 X1000 (0.0-0.7); EOS% 5.5 % (0.0-10.0); HEMATOCRIT 25.4 % (42.0-52.0); HEMOGLOBIN 8.4 g/dL (14.0-18.0); IMM GRAN# 0.07 X1000 (0.0-0.04); IMM GRAN% 1.1 % (0.0-0.5); LYMPH# 0.99 X1000 (1.2-3.4); LYMPH% 15.6 % (20.5-51.1); MCH 28.4 PG (27-31); MCHC 33.1 g/dL (33-37); MCV 85.8 FL (81-99); MONO# 0.34 X1000 (0.11-0.59); MONO% 5.4 % (1.7-9.3); MPV 10.1 FL (7.4-10.4); NEUT% 72.1 % (42.2-75.2); PLT 211 X1000 (130-400); RBC 2.96 XMIL (4.7-6.1)
[2016-06-29] MEDS: HUMULIN R SUBQ SCH ×5 (06:33→20:15)
[2016-06-29] MEDS: CARAFATE LIQUID PO SCH ×4 (06:40→23:01)
[2016-06-29] MEDS: ICAR-C PLUS PO SCH ×2 (09:18→20:14)
[2016-06-29] MEDS: CARDIZEM CD PO SCH (09:19)
[2016-06-29] MEDS: PROTONIX 80 MG in NS 80 ML IV SCH (09:19)
[2016-06-29] MEDS: UROXATRAL PO SCH (09:19)
[2016-06-29] MEDS: AMARYL PO SCH (09:19)
[2016-06-29] MEDS: CYMBALTA PO SCH (09:20)
[2016-06-29] MEDS: PROSCAR PO SCH (09:47)
[2016-06-29 11:46] LABS: HEMATOCRIT 27.5 % (42.0-52.0); HEMOGLOBIN 9.1 g/dL (14.0-18.0)
[2016-06-29] MEDS ORDERED: NS 1,000 ML IV SCH (13:13)
[2016-06-29] MEDS: POTASSIUM CHLORIDE 20 MEQ/SWI 20 MEQ/100 ML IVPB IV SCH ×2 (14:21→16:33)
[2016-06-29] MEDS: PROTONIX IV SCH (14:22)
[2016-06-29] MEDS: SODIUM CHLORIDE 0.9% INJ SCH (14:22)
--- NOTE | 2016-06-29 16:07 | PROGRESS NOTE ---
DATE: 06/29/2016 OBJECTIVE: Vital signs: Blood pressure 175/85, heart rate of 86, respiratory rate 29, temperature 98.5 degrees. Afebrile overnight. Cardiovascular: Regular rate and rhythm. Pulmonary: Bilateral breath sounds. Clear to auscultation. GI: Soft, nontender, nondistended. Bowel sounds are positive. LABORATORY DATA: Hemoglobin and hematocrit has come up after transfusion, 9 and 27 was the last check. White count normal. Platelets normal. Chemistries: His creatinine bumped up to 2.1, not sure if that is a big change. I think he has some chronic renal insufficiency. He was 2.3 in May. His usual creatinine is between 2, has been as high as 3.9, but is usually around 2, so that is not a big change for him. PROBLEM LIST: 1. Gastrointestinal bleed. Likely lower, diverticular. We will continue to follow. His potassium I believe is a little low so we will supplement that. I will start a little bit of fluids and monitor him. 2. Symptomatic anemia. He is status post 2 units, but his hemoglobin and hematocrit is stable and no further bleeding. Plan is for colonoscopy tomorrow. 3. Diabetes. I am going to hold his oral hypoglycemics as he is going to be nothing per oral and he is just on clears. For the time being, we will follow with sliding scale. 4. Benign prostatic hypertrophy. Continue his regular medications and monitor in the ICU for another 24 hours. cc: Bharat Escobar MD
[2016-06-29 18:24] LABS: HEMATOCRIT 26.2 % (42.0-52.0); HEMOGLOBIN 8.7 g/dL (14.0-18.0)
[2016-06-29] MEDS: ATIVAN PO SCH (20:14)
[2016-06-29] MEDS: LIPITOR PO SCH (20:14)
[2016-06-29] MEDS: COREG PO SCH (21:08)
[2016-06-30] MEDS: PROTONIX IV SCH ×3 (01:54→21:26)
[2016-06-30 05:08] LABS: HEMATOCRIT 24.9 % (42.0-52.0); HEMOGLOBIN 8.5 g/dL (14.0-18.0); MCHC 34.1 g/dL (33-37); MPV 9.4 FL (7.4-10.4); RBC 2.93 XMIL (4.7-6.1)
[2016-06-30 05:21] LABS: ALBUMIN 2.8 g/dL (3.5-5.0); CALCIUM 8.1 mg/dL (8.8-10.2); POTASSIUM 3.5 mmol/L (3.5-5.1)
--- NOTE | 2016-06-30 06:16 | EKG Report ---
Test Performed on : 06/29/2016 06:34:25 AM Test Reason : chest pain Blood Pressure : / mmHG Vent. Rate : 080 BPM Atrial Rate : 080 BPM P-R Int : 178 ms QRS Dur : 082 ms QT Int : 398 ms P-R-T Axes : 020 021 256 degrees QTc Int : 459 ms Normal sinus rhythm. Cannot rule out Anterior infarct , age undetermined T wave abnormality, consider inferolateral ischemia Abnormal ECG When compared with ECG of 18-MAY-2016 06:26, No significant change was found Confirmed by Maite HOLT, Hudson Bang ([id number]) on 06/30/2016 7:32:09 AM
[2016-06-30] MEDS: HUMULIN R SUBQ SCH ×4 (06:19→21:25)
[2016-06-30] MEDS: CARAFATE LIQUID PO SCH ×4 (06:19→23:00)
[2016-06-30] MEDS: UROXATRAL PO SCH (09:20)
[2016-06-30] MEDS: ICAR-C PLUS PO SCH ×2 (09:21→21:26)
[2016-06-30] MEDS: COREG PO SCH ×2 (09:21→21:25)
[2016-06-30] MEDS: PROSCAR PO SCH (09:21)
[2016-06-30] MEDS: APRESOLINE PO SCH ×3 (09:22→16:16)
[2016-06-30] MEDS: CARDIZEM CD PO SCH (09:22)
[2016-06-30] MEDS: CYMBALTA PO SCH (09:24)
--- NOTE | 2016-06-30 09:40 | EKG Report ---
Test Performed on : 06/28/2016 11:12:22 AM Test Reason : ED. Not ordered in [place] Blood Pressure : / mmHG Vent. Rate : 078 BPM Atrial Rate : 078 BPM P-R Int : 158 ms QRS Dur : 076 ms QT Int : 380 ms P-R-T Axes : 037 026 -63 degrees QTc Int : 433 ms Normal sinus rhythm. ST \T\ T wave abnormality, consider inferolateral ischemia Abnormal ECG No previous ECGs available Unconfirmed Result
--- NOTE | 2016-06-30 09:48 | PROGRESS NOTE ---
DATE: 06/30/2016 HISTORY: This is a 70-year-old who was admitted on 06/28/2006. He states that at about 5:30 in the morning, he was having bloody clots and bright red stool, having GI bleed. Had a GI bleed in November of 2014. At that time, Dr. Gill performed a colonoscopy. It showed a mid sigmoid colon diverticula with a clot that was oozing, hematemesis at that time. He was admitted for atrial fibrillation, rapid ventricular rate, and atrial flutter, and converted at that time back to normal sinus rhythm. Had some chest pain. No sign of myocardial infarction. In April, he was admitted for chest pain, atrial fibrillation and flutter, with followup with cardiology. Converted back to sinus rhythm. He was put on Plavix. It has been stopped I believe in April since the risk of GI bleed. Currently on aspirin 81 mg a day. No other blood thinners. Denies taking any medications such as nonsteroidal anti-inflammatories or extra aspirin. Orthostatic vital signs, he was hypotensive. EKG revealed he was in sinus rhythm. He had been off his Plavix and they had held his baby aspirin. By history, he had a bright red clots with darker clots that started the morning of 06/28/2016. He feels better. No sign of bleeding. Feels a little more comfortable this morning. Blood pressure is improved. He has a history of paroxysmal atrial fibrillation but appears to be in sinus rhythm. He had some hypokalemia which was treated. PHYSICAL EXAMINATION: Vital Signs: Temperature 97.8 degrees, pulse 64, respirations 18, blood pressure 160/83. HEENT: Pupils are equal and round. Lungs: Clear in all lung farfan. Cardiovascular Examination: Regular rhythm and rate without murmur or S3. Abdomen: Soft. Skin: Warm and dry. LABORATORY DATA: White count 5510, hematocrit 24, platelet count 204,000. Chemistries: Sodium 142, potassium 3.5, chloride 107, BUN 22, creatinine 0.7, blood sugars 98, 70, and 58. Albumin was 2.8. ASSESSMENT AND PLAN: 1. Gastrointestinal bleed, likely diverticular. Continue to follow his potassium and supplement as needed. Hematocrit stable. No recent bleeding. 2. Symptomatic anemia. He received 2 units of packed red blood cells. Hematocrit appears stable. 3. Diabetes mellitus type 2. Follow his sugars. 4. Benign prostatic hypertrophy. Aware. I think the plan is to pursue colonoscopy this morning. Dr. Ryan, I appreciate her help with evaluation. Saw him last night. 5. His acute gastrointestinal bleed most likely is secondary to diverticular bleed. 6. History of gastric polyps, history of colon polyps, history of reflux disease. 7. He received 2 units of blood. I think he is on a proton pump inhibitor, Protonix. I think that Dr. Gill will see him today. I think the plan is for a colonoscopy. cc: Giorgio Arriaga MD
[2016-06-30] MEDS ORDERED: DIPRIVAN 1% ONE (12:32)
[2016-06-30] MEDS: SODIUM CHLORIDE 0.9% INJ SCH ×2 (12:48→21:26)
[2016-06-30] MEDS ORDERED: ANESTHESIA PB SET 88 IN 5742 ONE (13:52)
[2016-06-30] MEDS ORDERED: NS 1,000 ML ONE (13:52)
[2016-06-30] MEDS ORDERED: XYLOCAINE-MPF 2% ONE (13:52)
--- NOTE | 2016-06-30 13:55 | OPERATIVE NOTE ---
PROCEDURE DATE: 06/30/2016 PROCEDURE: 1. Colonoscopy. 2. Polypectomy. PREOPERATIVE DIAGNOSIS: Gastrointestinal bleed. POSTOPERATIVE DIAGNOSES: 1. Colon polyps. 2. Diverticulosis. SCOPE USED: Olympus CF HQ-190. ANESTHESIA: MAC as per Anesthesia. HISTORY: This is a 70-year-old gentleman admitted to hospital with history of GI bleed. He received a blood transfusion and stabilize endoscopy was done to identify the source of bleeding and treat accordingly. DESCRIPTION OF PROCEDURE: Informed consent was obtained from the patient. The procedure, risks, benefits, alternatives were explained in layman's terms. He understood, all his pertinent questions were answered. Patient was brought to the endoscopy unit and was premedicated as per Anesthesia. After adequate sedation, while he was lying in left lateral position, the digital rectal exam was performed, which was normal. The scope was then gently introduced into the rectum and advanced under direct vision through the parts of colon, all the way up to the cecum. The cecum was identified by ileocecal valve and appendiceal orifice. Scope was then passed through the normal ileocecal valve into terminal ileum. About 8-10 cm of terminal ileum was examined, which was normal. I did not see any evidence of blood or altered blood in the terminal ileum. Scope was then withdrawn back into the cecum, back through the parts of colon, all the way up the rectum, paying attention to details. Preparation was good. The visualized portion of the colon revealed 2 polyps in the ascending colon, which were about 5 to 8 mm in size, sessile, smooth surfaced. Polypectomy was performed by snare and cautery without difficulty. Two more polyps were seen in the descending colon, which was also about 8-9 mm in size, sessile, smooth surface, hyperemic surface. These polyps were removed also with a snare and cautery without difficulty. No complications noted. Another polyp was seen in the rectum, which was about 5-8 mm in size as well, sessile, smooth surface. Polypectomy was performed by snare cautery. Throughout the colon predominantly in the left there were scattered diverticula seen, but some of the diverticulum were seen on the right side of the colon as well. They did not have any evidence of diverticulitis or diverticular bleeding. Retroflexed view of the rectum revealed no pathology either. The scope was then removed. Patient tolerated the procedure well. No complications noted. Patient was then transferred to the recovery area in a stable condition. IMPRESSION: 1. Colon polyps, polypectomy performed. 2. Diverticulosis. RECOMMENDATION: I did not see any pathology in the colon going all the up to the terminal ileum, that may have been the reason for his bleeding. I would continue to observe his hemoglobin and hematocrit and transfuse as necessary. In the meantime, advanced the diet and once stabilized he can be discharged to be followed up in the office. Advised to follow biopsy report in a couple weeks and follow up with Dr. Arriaga as scheduled. cc: MD Giorgio Faith MD
[2016-06-30] MEDS: ATIVAN PO SCH (21:25)
[2016-06-30] MEDS: LIPITOR PO SCH (21:26)
[2016-07-01] MEDS: CARAFATE LIQUID PO SCH (05:48)
[2016-07-01] MEDS: HUMULIN R SUBQ SCH (06:00)
[2016-07-01 07:57] VITALS: BP 169/73
[2016-07-01] MEDS: SODIUM CHLORIDE 0.9% INJ SCH (08:01)
[2016-07-01] MEDS: ICAR-C PLUS PO SCH (08:01)
[2016-07-01] MEDS: APRESOLINE PO SCH (08:01)
[2016-07-01] MEDS: PROTONIX IV SCH (08:01)
[2016-07-01] MEDS: UROXATRAL PO SCH (08:01)
[2016-07-01] MEDS: CARDIZEM CD PO SCH (08:02)
[2016-07-01] MEDS: PROSCAR PO SCH (08:02)
[2016-07-01] MEDS: COREG PO SCH (08:02)
[2016-07-01] MEDS: CYMBALTA PO SCH (08:06)
[2016-07-01 10:29] LABS: HEMATOCRIT 26.6 % (42.0-52.0); HEMOGLOBIN 8.7 g/dL (14.0-18.0)
--- NOTE | 2016-07-01 10:50 | DISCHARGE SUMMARY ---
ADMISSION DATE: 06/28/2016 DISCHARGE DATE: 07/01/2016 HISTORY OF PRESENT ILLNESS: Presented on 06/28/2016. His doctor is Dr. Meek and Dr. Gill was the stock blender. Back Hoe Machine Operator is Dr. Butt. Manufacturing Engineer Supervisor is Dr. Nunn. Urologist is Dr. Owens. A 70-year-old who states that around 5:30 on 06/28/2016 had bloody clots, bright red stool. He has a past medical history of a GI bleed in November of 2015. During that time, Dr. Gill performed colonoscopy. It showed mild sigmoid colon diverticula with a clot that was oozing and hemostasis at that time was achieved. His most recent admission was for atrial fibrillation with rapid ventricular rate, atrial flutter. At that time, he converted at the same point back to normal sinus rhythm. In March, he also had chest pain but no DC. In April, he again was admitted for chest pain, atrial fibrillation and flutter, followed per cardiology. Converted back to sinus rhythm. He is on Plavix which had been stopped I believe in April secondary to risk of GI bleed. He is currently on aspirin 81 mg a day but he was on no other blood thinners. Denied taking any medications that could irritate the gastric lining. Orthostatic vital signs revealed that he was hypotensive upon standing. He can drop from as high as 170 systolic in the supine position to 97 systolic in the standing position. His only complaint was of dizziness for the day of admission. He had no abdominal pain. He states he actually is hungry and ate a large breakfast that morning. Blood clots and stools were in large amounts according the to the point that he was walking from his bed to the bedroom, he was dripping. EKG revealed he actually had normal sinus rhythm. He has been off Plavix. Plan was to stop baby aspirin and admit to the hospital. REVIEW OF PAST MEDICAL HISTORY: 1. Chronic kidney disease stage III. 2. CVA. 3. Hypertension. 4. Obstructive sleep apnea. 5. Paroxysmal atrial fibrillation. 6. Left renal mass, followed by Dr. Gonzalez. 7. Myocardial infarction with coronary artery disease. 8. Diabetes mellitus type 2. 9. Kidney stones. 10. Iron deficiency anemia. 11. History of GI bleed and diverticulosis. 12. History of pulmonary nodule. PAST SURGICAL HISTORY: 1. Status post cholecystectomy. 2. Status post hernia repair. 3. Status post prostate biopsy. 4. Lithotripsy. 5. Last colonoscopy was 12/16/2015. He had a mild sigmoid diverticula and oozing. HOSPITAL COURSE: He is admitted with lower GI bleed, bright red blood and darker clots that started earlier that morning. They had stopped the aspirin. Gave him some IV fluids. Dr. Ryan was production metal sprayer the weekend for Dr. Gill. Because of active bleeding, gave him some GoLYTELY bowel prep and pursued a colonoscopy. Gave 2 units of packed red blood cells. Because of orthostatic hypotension, was given fluids. In addition, moved to the unit. Colonoscopy performed on 06/30/2016, colon polyps, diverticulosis. He had received his blood transfusion of 2 units. I did not see any pathology in the colon. Went all way up to the terminal ileum. Hematocrit remained stable. Dr. Gill got a biopsy. Patient wanted go home on 07/01/2016. Hematocrit stable and no sign of further active bleeding. He does have some dark stools at times. He is on a proton pump inhibitor. The plan is to let him go home on 07/01/2016, follow up with Dr. Gill in a couple of weeks and follow up with Dr. Meek. DISCHARGE MEDICATIONS: He will be on Carafate 1 g q.6. He will be on Protonix 40 mg p.o. twice a day, Ativan 0.5 mg at bedtime, Icar C 1 b.i.d., Apresoline 100 mg t.i.d., Proscar 5 mg a day, Cymbalta 60 mg a day, Cardizem CD 180 mg daily, Coreg 12.5 mg b.i.d., Lipitor 20 mg a day, Uroxatral 10 mg daily. DISCHARGE INSTRUCTIONS: He will get followup as I stated with Dr. Meek and Dr. Gill. cc: Giorgio Arriaga MD
[2016-07-01] MEDS ORDERED: PROTONIX IV SCH (10:55)
--- NOTE | 2016-07-17 14:17 | PROVIDER DOCUMENTATION ---
This chart was entered by Oliva Jimenez Scribe, acting as scribe for Tunde Ortiz MD. HPI-Abdominal Pain/GI Problem - General Chief Complaint: GI Bleed Time Seen by Provider: 06/28/16 08:42 Source: patient Allergies/Adverse Reactions: Patient Allergies Allergy/AdvReac Type Severity Reaction Status Date / Time No Known Allergies Allergy Verified 06/28/16 08:36 Home Medications: Home Medication List Medication Instructions Recorded Confirmed Last Taken Type Alfuzosin E.r. [Uroxatral] 10 mg PO DAILY 04/09/15 06/28/16 06/27/16 History Atorvastatin Calcium [Lipitor] 20 mg PO QHS 04/09/15 06/28/16 06/27/16 History Cyanocobalamin 1,000 microgm IM DIRECTED 04/09/15 06/28/16 06/27/16 History Duloxetine [Cymbalta] 60 mg PO DAILY 04/09/15 06/28/16 06/27/16 History Finasteride 5 mg PO DAILY 04/09/15 06/28/16 06/27/16 History Glimepiride [Amaryl] 4 mg PO BID 04/09/15 06/28/16 06/27/16 History Lorazepam [Ativan] 0.5 mg PO QHS 04/09/15 06/28/16 06/27/16 History Hydralazine [Apresoline] 100 mg PO TID #90 tablet 04/10/15 06/28/16 06/27/16 Rx Potassium Chloride 20 meq PO DAILY #0 04/10/15 06/28/16 06/27/16 Rx Aspirin [Aspirin EC] 81 mg PO DAILY #0 12/16/15 06/28/16 06/27/16 Rx Diltiazem C.d. [Cardizem Cd] 180 mg PO DAILY #30 capsule 03/28/16 06/28/1606/27 Rx Furosemide [Lasix] 80 mg PO BID #60 tablet 03/28/16 06/28/16 06/27/16 Rx Iron Carbonyl/Vit C/Vit B12/FA 1 each PO BID #60 tablet 03/28/16 06/28/16 Rx [Icar-C Plus] Carvedilol [Coreg] 12.5 mg PO BID #60 tablet 05/19/16 06/28/16 06/27/16 Rx Pantoprazole Sodium [Protonix] 40 mg PO BID #11 tablet. 07/01/16 Unknown Rx Sucralfate [Carafate] 1 gm PO 4XDAY #120 tablet 07/01/16 Unknown Rx - History of Present Illness-ABD Nature of Presenting Problems: Pt is 70 y/o M presents to the ED with rectal bleeding. Pt states the bleeding started this am at 0500. Pt states bleeding is with and without stool. Pt states the blood is bright red. Pt denies abdominal pain. Pt denies F and chills. Abdominal Pain Onset Location: denies: RUQ, LUQ, RLQ, LLQ, epigastric, periumbilical, suprapubic, generalized abdomen, flank, unknown Pain Radiation: reports: no radiation Quality of Pain: reports: none Onset/Duration: reports: this morning (0500) Timing: reports: still present Activities at Onset: reports: light activity Exposure to sick contacts?: No Modifying Factors: improves with: nothing Associated Symptoms: reports: denies symptoms Last BM: this morning Dark Stools Present?: reports: bright red blood Rectal Bleeding: reports: bleeding without stool, blood mixed with stool Rectal Pain: reports: none Emesis Description: reports: none Bruising or Bleeding Gums?: No Similar Symptoms Previously?: Yes Recently seen or treated by another doctor?: No Review of Systems - Adult - REVIEW OF SYSTEMS - ADULT Constitutional: reports: no symptoms reported Eyes: reports: no symptoms reported Ears, Nose, Mouth & Throat: reports: no symptoms reported Cardiovascular: reports: no symptoms reported Respiratory: reports: no symptoms reported Gastrointestinal: reports: rectal bleeding. denies: abdominal pain, diarrhea, nausea, vomiting Genitourinary: reports: no symptoms reported Musculoskeletal: reports: no symptoms reported Integumentary: reports: no symptoms reported Neurological: reports: no symptoms reported Psychiatric: reports: no symptoms reported Endocrine: reports: no symptoms reported Hematologic/Lymphatic: reports: no symptoms reported Allergic/Immunologic: reports: no symptoms reported All Other Systems: Reviewed and Negative Past History - Adult - PAST MEDICAL HISTORY-ADULT Review of Records: reports: Nursing Assessment Review, Medications Reviewed, Social history reviewed & non-contributory. Major Childhood Illnesses: reports: denies history Cardiovascular: reports: CHF, HTN Respiratory: reports: sleep apnea Gastrointestinal: reports: hepatitis, hemorrhoids Obstetrical/Gynecological: reports: denies history Genitourinary: reports: kidney disease, prostatitis Musculoskeletal: reports: denies history Neurological: reports: CVA. denies: stroke deficits, dementia Endocrine/Immune: reports: Diabetes Other Conditions: reports: denies history - PRIOR SURGERIES/PROCEDURES Surgical/Procedure History: reports: cholecystectomy, hernia repair - IMMUNIZATION STATUS Childhood Immunizations: See Nurse Assessment Flu Vaccine: See Nurse Assessment - FAMILY HISTORY Family History: reviewed, not pertinent - SOCIAL HISTORY Smoking: quit greater than 1 year, cigarettes Substance Use: denies Living Situation: family Physical Exam-General - PHYSICAL EXAM-ADULT Initial Vital Signs Reviewed: Yes - CONSTITUTIONAL General Appearance: alert, no apparent distress - EYES Eyes: PERRL/EOMI, pink conjunctivae - HEAD, EARS, NOSE, MOUTH & THROAT HENMT: normocephalic/atraumatic, moist mucous membranes, normal ENT inspection - NECK Neck: supple, normal inspection - RESPIRATORY Respiratory: chest non-tender, lungs clear, normal breath sounds - CARDIOVASCULAR Cardiovascular: normal peripheral pulses, regular rate, rhythm, no edema - GASTROINTESTINAL (ABDOMEN) Abdominal Exam: normal bowel sounds, non tender, soft - GENITOURINARY Male Genitalia: deferred Rectal Exam: hemorrhoids, other (blood stains on underwear). negative: black stool, tenderness - LYMPHATIC Lymphatic: no adenopathy - MUSCULOSKELETAL Back Exam: normal inspection, no CVA tenderness, no vertebral tenderness Extremity: normal range of motion, non-tender - SKIN Integumentary: normal color, normal turgor, warm/dry - NEUROLOGIC Neurologic: grossly normal, no motor/sensory deficits - PSYCHIATRIC Psych/Mental Status: normal mood/affect, oriented x 3 Progress - PLAN OF CARE/RESULTS Progress/Plan/Lab Results: Vital Signs - 8 hr 06/28/16 08:13 06/28/16 09:56 Pulse Rate 81 Respiratory Rate 18 20 Blood Pressure 154/77 160/86 O2 Sat by Pulse Oximetry 97 Laboratory Results - last 24 hr 06/28/16 06/28/16 06/28/16 07:40 07:40 07:40 WBC 7.74 RBC 4.11 L Hgb 11.6 L Hct 35.9 L MCV 87.3 MCH 28.2 MCHC 32.3 L RDW Std Deviation 16.8 H Plt Count 264 MPV 9.8 Immature Gran % (Auto) 0.6 H Neut % (Auto) 82.6 H Lymph % (Auto) 8.0 L [place] % (Auto) 3.6 Eos % (Auto) 4.9 Baso % (Auto) 0.3 Immature Gran # (Auto) 0.05 H Neut # (Auto) 6.39 Lymph # (Auto) 0.62 L [place] # (Auto) 0.28 Eos # (Auto) 0.38 Baso # (Auto) 0.02 PT 11.1 INR 1.05 PTT (Actin FS) 27.5 Sodium 142 Potassium 3.0 L Chloride 102 Carbon Dioxide 26 Anion Gap 14 BUN 29 H Creatinine 1.9 H Estimated GFR/1.73 m2 35 BUN/Creatinine Ratio 15 Glucose 205 H Calculated Osmolality 295 Calcium 8.9 Total Bilirubin 0.48 AST 13 ALT 14 Alkaline Phosphatase 130 H Total Protein 7.3 Albumin 3.3 L Globulin 4.0 Albumin/Globulin Ratio 0.8 Amylase 30 Lipase 24 Urine Source Urine Color Urine Turbidity Urine pH Ur Specific Wilson Urine Protein Ur Glucose (Stick) Ur Ketones (Stick) Urine Blood Urine Nitrite Urine Bilirubin Urobilinogen Dipstick Urine Leukocytes Urine WBC (Auto) Urine RBC (Auto) U Epithel Cells (Auto) Urine Bacteria (Auto) Urine Crystals Small Round Cells Urine Casts Urine Yeast-like Cells 06/28/16 07:40 WBC RBC Hgb Hct MCV MCH MCHC RDW Std Deviation Plt Count MPV Immature Gran % (Auto) Neut % (Auto) Lymph % (Auto) [place] % (Auto) Eos % (Auto) Baso % (Auto) Immature Gran # (Auto) Neut # (Auto) Lymph # (Auto) [place] # (Auto) Eos # (Auto) Baso # (Auto) PT INR PTT (Actin FS) Sodium Potassium Chloride Carbon Dioxide Anion Gap BUN Creatinine Estimated GFR/1.73 m2 BUN/Creatinine Ratio Glucose Calculated Osmolality Calcium Total Bilirubin AST ALT Alkaline Phosphatase Total Protein Albumin Globulin Albumin/Globulin Ratio Amylase Lipase Urine Source CLEAN CATCH Urine Color YELLOW Urine Turbidity HAZY Urine pH 5.5 Ur Specific Wilson 1.018 Urine Protein 200 A Ur Glucose (Stick) NEGATIVE Ur Ketones (Stick) NEGATIVE Urine Blood NEGATIVE Urine Nitrite NEGATIVE Urine Bilirubin NEGATIVE Urobilinogen Dipstick NORMAL Urine Leukocytes NEGATIVE Urine WBC (Auto) <10 Urine RBC (Auto) <10 U Epithel Cells (Auto) <10 Urine Bacteria (Auto) NEGATIVE Urine Crystals Not Reportable Small Round Cells Not Reportable Urine Casts NONE SEEN Urine Yeast-like Cells NONE SEEN Orders Category Date Time Status IV [Saline Loc] NOW Care 06/28/16 08:20 Active AMYLASE [CHEM] Stat Lab 06/28/16 07:40 Completed CBC WITH DIFF [HEME] Stat Lab 06/28/16 07:40 Completed COMPREHENSIVE METABOLIC PANEL [CHEM] Stat Lab 06/28/16 07:40 Completed LIPASE [CHEM] Stat Lab 06/28/16 07:40 Completed PROTIME WITH INR [COAG] Stat Lab 06/28/16 07:40 Completed PTT [COAG] Stat Lab 06/28/16 07:40 Completed UA Reflex [URINALYSIS W/POSS RFLX CULT-1] [URINALYSIS] Lab 06/28/16 07:40 Completed Stat URINE MANUAL MICROSCOPIC [URINALYSIS] Stat Lab 06/28/16 07:40 Completed Result Diagrams: 07/01/16 10:08 06/30/16 04:50 - CONSULTS/PCP/HOSPITALIST Notification #1 *Consult/PCP/Hospitalist*: Dr. Escobar Time Discussed: 10:58 Reason/Comments: Dr. Ortiz consulted with Dr. Escobar about admit of Pt Consult Disposition: Admit Departure - Departure Date of Disposition Decision: 06/28/16 Time of Disposition Decision: 10:58 DIAGNOSIS: Rectal bleeding Disposition: ADMITTED INPATIENT 09 Certified Medical Emergency: Emergent Condition: Stable - Critical Care Note This patient required my direct & personal management of CC.: No This chart was documented by the indicated scribe, (Oliva Jimenez Scribe) and accurately reflects the services I performed and decisions made by me, Tunde Ortiz MD, as attested by the provider's signature.
== END 2016-07-01 11:04 | disposition home or self-care (01) ==
LOC: ED 07:28 → SUATTDRO 11:34 → 3S 11:34 → ICU 17:44
PROVIDERS: ATTEND Emergency Medicine

== ENCOUNTER 2016-09-16 11:40 | Inpatient (IN) ==
[2016-09-16 12:20] LABS: MANUAL DIFF NEEDED? NO
[2016-09-16 12:27] LABS: BASO% 0.3 % (0.0-0.8); HEMOGLOBIN 10.1 g/dL (14.0-18.0); MONO# 0.24 X1000 (0.11-0.59)
--- NOTE | 2016-09-16 12:32 | Diag Imaging Result Doc PS360 ---
CHEST-PORTABLE - 09/16/2016 INDICATION: stroke like symptoms TECHNIQUE: COMPARISON: 05/16/2016 FINDINGS: Stable cardiomegaly and pulmonary vascular congestion. Lung volumes are lower with some increasing bibasilar atelectasis. Otherwise, no substantial infiltrates. IMPRESSION: Nonspecific findings. Electronically signed by Jose Kapadia 09/16/2016 12:30 PM
[2016-09-16 12:35] LABS: EOS# 0.36 X1000 (0.0-0.7); EOS% 5.3 % (0.0-10.0); HEMATOCRIT 32.1 % (42.0-52.0); IMM GRAN# 0.02 X1000 (0.0-0.04); IMM GRAN% 0.3 % (0.0-0.5); LYMPH# 0.64 X1000 (1.2-3.4); LYMPH% 9.4 % (20.5-51.1); MCH 27.2 PG (27-31); MCHC 31.5 g/dL (33-37); MCV 86.3 FL (81-99); MONO% 3.5 % (1.7-9.3); MPV 9.8 FL (7.4-10.4); NEUT% 81.2 % (42.2-75.2); PLT 279 X1000 (130-400); RBC 3.72 XMIL (4.7-6.1)
--- NOTE | 2016-09-16 12:42 | Diag Imaging Result Doc PS360 ---
HEAD W/O CONTRAST - 09/16/2016 INDICATION: stroke like symptoms TECHNIQUE: A CT dose reduction protocol was used. COMPARISON: 11/07/2013 FINDINGS: The ventricles and sulci are normal in size and contour. There is stable moderately advanced periventricular and deep cerebral white matter hypodensity compatible with chronic microvascular disease. This also affects the midbrain and to lesser extent the gordon. No intracranial mass or hemorrhage. The skull is intact. The sinuses, mastoids, and middle ears are clear. IMPRESSION: Stable chronic ischemic changes of the brain. No acute disease or change from prior. Electronically signed by Jose Kapadia 09/16/2016 12:39 PM
[2016-09-16 12:46] LABS: ALBUMIN 2.8 g/dL (3.5-5.0); CALCIUM 8.9 mg/dL (8.8-10.2); POTASSIUM 3.3 mmol/L (3.5-5.1); TOTAL BILIRUBIN 0.44 mg/dL (0.20-1.00); TOTAL PROTEIN 7.1 g/dL (6.3-8.3)
[2016-09-16 13:02] LABS: URINE CULTURE NEEDED? NO; URINE SOURCE CLEAN CATCH
[2016-09-16 13:05] LABS: BILIRUBIN URINE NEGATIVE (NEGATIVE); BLOOD URINE NEGATIVE (NEGATIVE); COLOR YELLOW; GLUCOSE URINE NEGATIVE (NEGATIVE); LEUKOCYTES URINE NEGATIVE (NEGATIVE); NITRITE URINE NEGATIVE (NEGATIVE); PH URINE 5.5; PROTEIN URINE 100 mg/dL (NEGATIVE); SP GRAVITY URINE 1.016; TURBIDITY URINE CLEAR (CLEAR); UROBILINOGEN URINE NORMAL (NORMAL)
[2016-09-16 13:06] LABS: URINE MICRO REVIEW NEEDED? YES
[2016-09-16 13:08] LABS: UR EPITHELIAL CELLS <10 /HPF (<10); URINE BACTERIA NEGATIVE /HPF; URINE RBC <10 /HPF (<10); URINE WBC <10 /HPF (<10)
--- NOTE | 2016-09-16 13:29 | EKG Report ---
Test Performed on : 09/16/2016 12:07:23 PM Test Reason : STROKE LIKE SYMPTOMS Blood Pressure : / mmHG Vent. Rate : 089 BPM Atrial Rate : 089 BPM P-R Int : 156 ms QRS Dur : 086 ms QT Int : 346 ms P-R-T Axes : 030 028 -62 degrees QTc Int : 420 ms Normal sinus rhythm. ST \T\ T wave abnormality, consider inferolateral ischemia Abnormal ECG When compared with ECG of 29-JUN-2016 06:34, No significant change was found Unconfirmed Result
[2016-09-16] MEDS ORDERED: NS 1,000 ML IV ONE (13:38)
[2016-09-16 13:43] LABS: UR AMPHETAMINES QUAL NONE DETECTED (NONE DETECT); UR BARBITUATES QUAL NONE DETECTED (NONE DETECT); UR BENZODIAZEPIN QUAL NONE DETECTED (NONE DETECT); UR CANNABINOIDS QUAL NONE DETECTED (NONE DETECT); UR COCAINE QUAL NONE DETECTED (NONE DETECT); UR METHADONE QUAL NONE DETECTED (NONE DETECT); UR OPIATES QUAL PRESUMPTIVE POSITIVE (NONE DETECT); UR OXYCODONE QUAL NONE DETECTED (NONE DETECT); UR PCP QUAL NONE DETECTED (NONE DETECT)
--- NOTE | 2016-09-16 13:46 | PROVIDER DOCUMENTATION ---
This chart was entered by Ivan Marques Scribe, acting as scribe for Dangelo Call MD. HPI-Neurological Disorder - General Chief Complaint: Stroke-Like Symptoms Stated Complaint: POSS TIA Time Seen by Provider: 09/16/16 11:52 Source: patient, family Allergies/Adverse Reactions: Patient Allergies Allergy/AdvReac Type Severity Reaction Status Date / Time No Known Allergies Allergy Verified 06/28/16 08:36 Home Medications: Home Medication List Medication Instructions Recorded Confirmed Last Taken Type Alfuzosin E.r. [Uroxatral] 10 mg PO DAILY 04/09/15 09/16/16 09/16/16 History Atorvastatin Calcium [Lipitor] 20 mg PO QHS 04/09/15 09/16/16 09/16/16 History Duloxetine [Cymbalta] 60 mg PO DAILY 04/09/15 09/16/16 09/16/16 History Finasteride 5 mg PO DAILY 04/09/15 09/16/16 09/16/16 History Glimepiride [Amaryl] 4 mg PO BID 04/09/15 09/16/16 09/16/16 History Lorazepam [Ativan] 0.5 mg PO QHS 04/09/15 09/16/16 09/16/16 History Potassium Chloride 20 meq PO DAILY #0 04/10/15 09/16/16 09/16/16 Rx Aspirin [Aspirin EC] 81 mg PO DAILY #0 12/16/15 09/16/16 09/16/16 Rx Iron Carbonyl/Vit C/Vit B12/FA 1 each PO BID #60 tablet 03/28/16 09/16/16 Rx [Icar-C Plus] Carvedilol [Coreg] 12.5 mg PO BID #60 tablet 05/19/16 09/16/16 09/16/16 Rx Furosemide [Lasix] 80 mg PO DAILY 09/16/16 09/16/16 09/16/16 History Hydralazine [Apresoline] 100 mg PO BID 09/16/16 09/16/16 09/16/16 History - History of Present Illness-Neuro Nature of Presenting Problem: Patient is a 70 y/o M that presents with sleeping increased for awhile. report that patient slept most of the day. They patient reports having periodic headache at times. patient was sent by PCP for possible TIA, although patient reports no neurological deficits or issues( denies weakness,numbness, slurred speech, or facial droop). Denies neck/back pain, fever/chills, or recent cough Severity: reports: mild, moderate Onset/Duration: reports: unsure Timing: reports: improving Context: denies: head injury, recent infection, fever, impaired speech, paresthesia, facial droop, falling Character of Altered Mental Status: reports: other (sleepy). denies: confused, combative, agitated, seizure activity Character of Deficits: denies: altered sensation, impaired speech, impaired swallowing New weakness or altered sensation location:: reports: none Cognitive Baseline: alert, oriented x3 Gait Baseline: walks without assistance Associated Symptoms: reports: headache, sleepy. denies: decreased ability to walk or stand, fainting, dizziness, confusion, fever/chills, nausea, numbness in legs/feet, paresthesia, slurred speech, tingling in legs/feet, vomiting Recently seen or treated by another doctor?: No Review of Systems - Adult - REVIEW OF SYSTEMS - ADULT Constitutional: denies: chills, fever Eyes: denies: decreased vision, blurred vision, double vision, redness Ears, Nose, Mouth & Throat: denies: ear discharge, ear pain, epistaxis, sinus problem, throat pain, throat swelling Cardiovascular: denies: chest pain, palpitations, syncope Respiratory: denies: chronic cough, shortness of breath, wheezing Gastrointestinal: denies: abdominal pain, diarrhea, nausea, vomiting Genitourinary: reports: no symptoms reported Musculoskeletal: denies: back pain, joint pain, neck pain Integumentary: reports: no symptoms reported Neurological: reports: headache/migraines. denies: dizziness/vertigo, numbness , paresthesia, syncope Psychiatric: reports: no symptoms reported Endocrine: reports: no symptoms reported Hematologic/Lymphatic: reports: no symptoms reported Allergic/Immunologic: reports: no symptoms reported All Other Systems: Reviewed and Negative Past History - Adult - PAST MEDICAL HISTORY-ADULT Review of Records: reports: Old Records Reviewed, Nursing Assessment Review, Medications Reviewed Cardiovascular: reports: CHF, HTN Respiratory: reports: sleep apnea Gastrointestinal: reports: hepatitis, hemorrhoids Genitourinary: reports: kidney disease, prostatitis Neurological: reports: CVA. denies: stroke deficits, dementia Endocrine/Immune: reports: Diabetes - PRIOR SURGERIES/PROCEDURES Surgical/Procedure History: reports: cholecystectomy, hernia repair - IMMUNIZATION STATUS Childhood Immunizations: See Nurse Assessment Flu Vaccine: See Nurse Assessment - FAMILY HISTORY Family History: reviewed, not pertinent - SOCIAL HISTORY Smoking: chew Living Situation: family Physical Exam- Neurological - Physical Exam-Neuro Initial Vital Signs Reviewed: Yes General Appearance: alert, no apparent distress Eye Exam: bilateral eye: normal inspection, PERRL, EOMI HENMT: normocephalic/atraumatic, moist mucous membranes, normal ENT inspection Head Injury: no evidence of injury. negative: ecchymosis, lacerations Neck: non-tender, full range of motion, normal inspection Respiratory: chest non-tender, lungs clear, normal breath sounds, no respiratory distress, no accessory muscle use Cardiovascular: regular rate, rhythm, no edema, no murmur Abdominal Exam: normal bowel sounds, non tender, soft, no organomegaly, no pulsatile mass Extremity: normal range of motion, normal inspection, no pedal edema finance mgr Exam: normal hearing, normal speech, PERRL Motor/Sensory: no motor deficit, no sensory deficit, no pronator drift Neurologic: finance mgr II-XII nml as tested, no motor/sensory deficits. negative: aphasia, EOM palsy, facial droop, focal weakness, motor weakness Integumentary: normal color, warm/dry Psych/Mental Status: normal mood/affect, normal thought content, normal thought process, oriented x 3 - Glascow Coma Scale Best Eye Response: (4) open spontaneously Best Verbal Response: (5) oriented Best Motor Response: (6) obeys commands Total Glascow Score: 15 Progress - PLAN OF CARE/RESULTS Progress/Plan/Lab Results: Vital Signs - 8 hr 09/16/16 11:42 09/16/16 13:00 09/16/16 14:00 Temperature 98.4 F Pulse Rate 95 H 75 76 Respiratory Rate 18 18 10 L Blood Pressure 173/62 171/87 187/95 O2 Sat by Pulse Oximetry 96 91 L 98 09/16/16 14:02 09/16/16 14:35 09/16/16 15:00 Temperature Pulse Rate 75 79 Respiratory Rate 20 20 Blood Pressure 187/95 198/93 196/95 O2 Sat by Pulse Oximetry 99 98 Laboratory Results - last 24 hr 09/16/16 09/16/16 09/16/16 11:59 11:59 11:59 WBC 6.80 RBC 3.72 L Hgb 10.1 L Hct 32.1 L MCV 86.3 MCH 27.2 MCHC 31.5 L RDW Std Deviation 15.1 H Plt Count 279 MPV 9.8 Immature Gran % (Auto) 0.3 Neut % (Auto) 81.2 H Lymph % (Auto) 9.4 L Tompkins % (Auto) 3.5 Eos % (Auto) 5.3 Baso % (Auto) 0.3 Immature Gran # (Auto) 0.02 Neut # (Auto) 5.52 Lymph # (Auto) 0.64 L Tompkins # (Auto) 0.24 Eos # (Auto) 0.36 Baso # (Auto) 0.02 ESR D-Dimer Sodium 140 Potassium 3.3 L Chloride 101 Carbon Dioxide 26 Anion Gap 13 BUN 34 H Creatinine 2.2 H Estimated GFR/1.73 m2 30 BUN/Creatinine Ratio 15 Glucose 246 H Calculated Osmolality 295 Calcium 8.9 Total Bilirubin 0.44 AST 43 H ALT 49 H Alkaline Phosphatase 144 H Troponin T 0.025 Total Protein 7.1 Albumin 2.8 L Globulin 4.3 Albumin/Globulin Ratio 0.7 Amylase 25 Lipase 25 Urine Source Urine Color Urine Turbidity Urine pH Ur Specific [place] Urine Protein Ur Glucose (Stick) Ur Ketones (Stick) Urine Blood Urine Nitrite Urine Bilirubin Urobilinogen Dipstick Urine Leukocytes Urine WBC (Auto) Urine RBC (Auto) U Epithel Cells (Auto) Urine Bacteria (Auto) Urine Crystals Small Round Cells Urine Casts Urine Yeast-like Cells Urine Opiates Screen Ur Oxycodone Screen Ur Methadone, Qual Ur Barbiturates Screen Ur Phencyclidine Scrn Ur Amphetamines Screen U Benzodiazepines Scrn Urine Cocaine Screen U Cannabinoids Screen 09/16/16 09/16/16 09/16/16 11:59 11:59 12:55 WBC RBC Hgb Hct MCV MCH MCHC RDW Std Deviation Plt Count MPV Immature Gran % (Auto) Neut % (Auto) Lymph % (Auto) Tompkins % (Auto) Eos % (Auto) Baso % (Auto) Immature Gran # (Auto) Neut # (Auto) Lymph # (Auto) Tompkins # (Auto) Eos # (Auto) Baso # (Auto) ESR 118 H D-Dimer 5.56 H Sodium Potassium Chloride Carbon Dioxide Anion Gap BUN Creatinine Estimated GFR/1.73 m2 BUN/Creatinine Ratio Glucose Calculated Osmolality Calcium Total Bilirubin AST ALT Alkaline Phosphatase Troponin T Total Protein Albumin Globulin Albumin/Globulin Ratio Amylase Lipase Urine Source CLEAN CATCH Urine Color YELLOW Urine Turbidity CLEAR Urine pH 5.5 Ur Specific [place] 1.016 Urine Protein 100 A Ur Glucose (Stick) NEGATIVE Ur Ketones (Stick) NEGATIVE Urine Blood NEGATIVE Urine Nitrite NEGATIVE Urine Bilirubin NEGATIVE Urobilinogen Dipstick NORMAL Urine Leukocytes NEGATIVE Urine WBC (Auto) <10 Urine RBC (Auto) <10 U Epithel Cells (Auto) <10 Urine Bacteria (Auto) NEGATIVE Urine Crystals Not Reportable Small Round Cells Not Reportable Urine Casts Not Reportable Urine Yeast-like Cells NONE SEEN Urine Opiates Screen Ur Oxycodone Screen Ur Methadone, Qual Ur Barbiturates Screen Ur Phencyclidine Scrn Ur Amphetamines Screen U Benzodiazepines Scrn Urine Cocaine Screen U Cannabinoids Screen 09/16/16 12:55 WBC RBC Hgb Hct MCV MCH MCHC RDW Std Deviation Plt Count MPV Immature Gran % (Auto) Neut % (Auto) Lymph % (Auto) Tompkins % (Auto) Eos % (Auto) Baso % (Auto) Immature Gran # (Auto) Neut # (Auto) Lymph # (Auto) Tompkins # (Auto) Eos # (Auto) Baso # (Auto) ESR D-Dimer Sodium Potassium Chloride Carbon Dioxide Anion Gap BUN Creatinine Estimated GFR/1.73 m2 BUN/Creatinine Ratio Glucose Calculated Osmolality Calcium Total Bilirubin AST ALT Alkaline Phosphatase Troponin T Total Protein Albumin Globulin Albumin/Globulin Ratio Amylase Lipase Urine Source Urine Color Urine Turbidity Urine pH Ur Specific [place] Urine Protein Ur Glucose (Stick) Ur Ketones (Stick) Urine Blood Urine Nitrite Urine Bilirubin Urobilinogen Dipstick Urine Leukocytes Urine WBC (Auto) Urine RBC (Auto) U Epithel Cells (Auto) Urine Bacteria (Auto) Urine Crystals Small Round Cells Urine Casts Urine Yeast-like Cells Urine Opiates Screen PRESUMPTIVE POSITIVE A Ur Oxycodone Screen NONE DETECTED Ur Methadone, Qual NONE DETECTED Ur Barbiturates Screen NONE DETECTED Ur Phencyclidine Scrn NONE DETECTED Ur Amphetamines Screen NONE DETECTED U Benzodiazepines Scrn NONE DETECTED Urine Cocaine Screen NONE DETECTED U Cannabinoids Screen NONE DETECTED Orders Category Date Time Status Cardiac Monitoring DIRECTED Care 09/16/16 12:13 Active Finger Stick Blood Sugar (ED) DIRECTED Care 09/16/16 12:13 Active Misc. NRSG Communication Order DIRECTED Care 09/16/16 12:13 Active Oxygen Therapy- ED Nursing DIRECTED Care 09/16/16 12:13 Active Saline Loc DIRECTED Care 09/16/16 12:11 Active Saline Loc NOW Care 09/16/16 12:13 Active NPO Diet 09/16/16 12:11 Active ANGIOGRAM/PULMONARY ARTERIES [CT] Stat Exams 09/16/16 13:38 Completed CHEST-PORTABLE [RAD] Stat Exams 09/16/16 12:13 Completed HEAD W/O CONTRAST [CT] Stat Exams 09/16/16 12:13 Completed AMYLASE [CHEM] Stat Lab 09/16/16 11:59 Completed CBC WITH ELECTRONIC DIFF [HEME] Stat Lab 09/16/16 11:59 Completed COMPREHENSIVE METABOLIC PANEL [CHEM] Stat Lab 09/16/16 11:59 Completed Ddimer [D-DIMER] [CHEM] Stat Lab 09/16/16 11:59 Completed LIPASE [CHEM] Stat Lab 09/16/16 11:59 Completed SED RATE [HEME] Stat Lab 09/16/16 11:59 Completed TROPONIN T Stat Lab 09/16/16 11:59 Completed URINALYSIS W/POSS RFLX CULT-1 [URINALYSIS] Stat Lab 09/16/16 12:55 Completed URINE DRUG SCREEN Stat Lab 09/16/16 12:55 Completed URINE MANUAL MICROSCOPIC [URINALYSIS] Stat Lab 09/16/16 12:55 Completed pro-bnp [PRO B-NATRIURETIC PEPTIDE] Stat Lab 09/16/16 15:37 Ordered 0.9% Sodium Chloride Inj [Ns] 1,000 ml Med 09/16/16 13:38 Discontinued IV 999 mls/hr Clonidine [Catapres] Med 09/16/16 14:05 Discontinued 0.2 mg PO NOW ONE EKG [EKG] Stat Ther 09/16/16 12:13 Draft Result Diagrams: 09/16/16 11:59 09/16/16 11:59 - REASSESSMENT Reassessment #1 Time Reassessed: 14:04 Status: other (checked on pt and he rohit my attention to a pain in the right eye , exam fundoscopic and macroscopic was normal. He said that is what the eye doctor said. BP is up right now) Reassessment #2 Time Reassessed: 15:44 Status: unchanged (Pt's family insists on admission and pt will go along. Uses CPAP at night) - EKG 1 Time of EKG reading by physician:: 12:07 EKG Read and Signed by:: Dangelo Call EKG Interpretation (*Must complete 3 of following elements*): Abnormal Rate: 89 Rhythm: NSR Butler: normal QRS: normal OH Interval: normal ST Wave: non-specific ST changes - XRAY 1 XRAY Study: Chest Impression: Abnormal XRAY Interpretation: cmg, pulmonary vascular congestion, bibasliar atelectasis - CT/MRI 1 CT Study: Head Impression: Abnormal CT Results: stable chronic changes 2 CT Study: Angiogram (PE) Impression: Abnormal CT Results: NO pe, bilateral pleural effusions, CMG, small edema, pericardial effusion Departure - Departure Date of Disposition Decision: 09/16/16 Time of Disposition Decision: 15:45 DIAGNOSIS: Hypokalemia, Renal insufficiency syndrome CHF (congestive heart failure), NYHA class III Qualifiers: Congestive heart failure type: diastolic Congestive heart failure chronicity: chronic Qualified Code(s): I50.32 - Chronic diastolic (congestive) heart failure Hypertension Qualifiers: Hypertension type: renovascular hypertension Qualified Code(s): I15.0 - Renovascular hypertension Disposition: ADMITTED INPATIENT 09 Certified Medical Emergency: Emergent Condition: Stable Referrals and Follow-Ups: Jameel Meek MD [Primary Care Provider] - - Critical Care Note This patient required my direct & personal management of CC.: No This chart was documented by the indicated scribe, (Ivan Marques, Scribe) and accurately reflects the services I performed and decisions made by me, Dangelo Call MD, as attested by the provider's signature.
[2016-09-16] MEDS ORDERED: CATAPRES PO ONE (14:05)
--- NOTE | 2016-09-16 15:14 | Diag Imaging Result Doc PS360 ---
EXAM: ANGIOGRAM/PULMONARY ARTERIES INDICATION: elevated ddimer TECHNIQUE: In addition to standard CTA thin sections, coronal reformations and 3-D MIPS were obtained. Dose reduction protocol was used. COMPARISON: 03/28/2016 FINDINGS: There is excessive respiratory motion artifact at the lung bases, which may limit sensitivity for detecting small distal pulmonary emboli. However, there is no discrete filling defect identified to indicate pulmonary embolism. There is minimal patchy aortic atherosclerotic calcification. There is no evidence of aortic aneurysm or dissection. There is cardiomegaly and there is a small pericardial effusion. There is coronary artery calcification. There is no evidence of significant mediastinal or hilar lymphadenopathy. There are bilateral moderate to large sized pleural effusions and there is bibasilar atelectasis. Superimposed infection at the lower lung zones is possible. However, edema is most likely. There are patchy calcified pleural plaques bilaterally. IMPRESSION: 1.Bilateral moderate to large sized pleural effusions and bibasilar atelectasis. 2.Suggestion of edema at the lower lung zones. 3.Cardiomegaly. 4.Small pericardial effusion. 5.No evidence of pulmonary embolism. 6.Other incidental/nonacute findings detailed above. Electronically signed by Tello Jaimes 09/16/2016 3:12 PM
[2016-09-16] MEDS ORDERED: ZAROXOLYN PO ONE (15:50)
[2016-09-16] MEDS ORDERED: CLARITIN PO ONE (16:00)
[2016-09-16] MEDS ORDERED: FLONASE NAS ONE (16:00)
[2016-09-16] MEDS: LASIX IV SCH (17:34)
[2016-09-16] MEDS: TYLENOL PO PRN (18:16)
[2016-09-16] MEDS: ULTRAM PO PRN (18:16)
--- NOTE | 2016-09-16 19:10 | HISTORY AND PHYSICAL ---
CHIEF COMPLAINT: Shortness of breath. HISTORY OF PRESENT ILLNESS: This is a 70-year-old male with CHF, chronic renal failure presents with progressive shortness of breath for last several days. He is also complaining of significant pain in his right eye. He does have a history of atrial fibrillation. He denies any heart failure history but reportedly has a CHF history. He is followed by Dr. Butt. Workup in the ER today revealed bilateral pleural effusions and he was eventually admitted for that. Now he does report dyspnea on exertion. He does report orthopnea. He does report PND. He also reports chest pain intermittently with deep breathing. Workup in the ER again revealed bilateral pleural effusions, interstitial edema and he was admitted for a reported CHF exacerbation. CTA was negative for PE. PAST MEDICAL HISTORY: 1. Chronic renal failure stage 3. 2. History of CVA. 3. Hypertension. 4. Obstructive sleep apnea. 5. Atrial fibrillation. 6. CAD status post . 7. Type 2 diabetes. 8. Nephrolithiasis. 9. Iron deficiency anemia followed by Dr. Gonzalez. 10. Recent history of GI bleed. SURGICAL HISTORY: 1. Cholecystectomy. 2. Hernia repair. 3. Prostate biopsy. 4. Lithotripsy. SOCIAL HISTORY: He quit smoking 30 years ago. He quit alcohol 40 years ago. He does use chewing tobacco. FAMILY HISTORY: Positive for CAD, CVA in a brother. ALLERGIES: Reports no known drug allergies. MEDICATIONS: He currently takes Uroxatral 10 daily, aspirin 81 daily, Lipitor 20 daily, Coreg 12.5 b.i.d., Cymbalta 60 daily, finasteride 5 daily, Lasix 80 daily, glimepiride 4 b.i.d., Apresoline 100 b.i.d., Icar-C b.i.d., Ativan 0.5 at bedtime, Klor-Con 20 daily. REVIEW OF SYSTEMS: Ten systems reviewed. Otherwise negative.General: A well-developed male in no acute distress. Head: Normocephalic, atraumatic. Eyes: Pupils were equally round, reactive to light. Extraocular movements were intact. Ear/nose/throat: Moist mucous membranes. Neck: Supple. Cardiovascular Exam: Was irregular. Pulmonary: Decreased breath sounds but I did not hear asim rales or rhonchi. GI: Soft, nontender, nondistended. Bowel sounds are positive. Extremities: No clubbing or cyanosis. Lymphatic exam: Had trace edema in lower extremities. Neurological: Nonfocal. LABORATORY: Showed normal white count, hemoglobin and hematocrit 10 and 32, platelets of 279,000. D-dimer is 5.5, potassium 3.3, creatinine 2.2. AST 43 and 49, alkaline phosphatase 144. ProBNP 3568. UA was negative. CTA showed bilateral moderate to large size pleural effusion and atelectasis and edema, cardiomegaly, pericardial effusion. PROBLEM LIST: 1. Congestive heart failure exacerbation. We will continue diuresis. Recent echocardiogram was really unremarkable. That was back in April about 5 months ago. We will continue blood pressure control and follow, continue nitroglycerin, Coreg, I am going to get Cardiology opinion as this maybe a diastolic dysfunction issue, may be related to uncontrolled hypertension. 2. Bilateral pleural effusions. Again, I do not get a sense that there is infection, he has no white count, no fever, no cough. I think it would be reasonable to pursue thoracentesis tomorrow if fluid is still obvious. We will continue to monitor. 3. Diabetes. Appears well controlled. Continue his regular medications. Follow blood sugars. Check a hemoglobin A1c. 4. Hypertension uncontrolled. We will continue his regular regimen and monitor closely. 5. Atrial fibrillation appears to be rate controlled. Will continue his Coreg and monitor. He is not on anticoagulation. He did have a recent GI bleed. I believe that is the reason from that standpoint. 6. Acute, chronic renal failure stage 3 a little bit worse. We will monitor closely on his current regimen and I am going to get renal to follow since he is known to their service. cc: Jason Nunn MD
[2016-09-16] MEDS: HUMULIN R SUBQ SCH (21:37)
[2016-09-16] MEDS: AMARYL PO SCH (21:38)
[2016-09-16] MEDS: LIPITOR PO SCH (21:38)
[2016-09-16] MEDS: ICAR-C PLUS PO SCH (21:38)
[2016-09-16] MEDS: APRESOLINE PO SCH (21:39)
[2016-09-16] MEDS: ATIVAN PO SCH (21:39)
[2016-09-16] MEDS: COREG PO SCH (21:39)
[2016-09-16] MEDS: NITROGLYCERIN TOP SCH (21:39)
[2016-09-17] MEDS: LASIX IV SCH ×2 (05:11→17:04)
[2016-09-17] MEDS: NITROGLYCERIN TOP SCH ×5 (05:11→19:43)
[2016-09-17 05:55] LABS: HEMATOCRIT 32.3 % (42.0-52.0); HEMOGLOBIN 10.2 g/dL (14.0-18.0); MCH 27.2 PG (27-31); MCHC 31.6 g/dL (33-37); MCV 86.1 FL (81-99); MPV 9.9 FL (7.4-10.4); RBC 3.75 XMIL (4.7-6.1)
[2016-09-17 06:08] LABS: CALCIUM 8.7 mg/dL (8.8-10.2); POTASSIUM 3.2 mmol/L (3.5-5.1)
[2016-09-17] MEDS: HUMULIN R SUBQ SCH ×4 (06:14→20:18)
[2016-09-17 06:33] LABS: HEMOGLOBIN A1C 6.2 % (4.8-6.0)
[2016-09-17] MEDS: TYLENOL PO PRN ×2 (07:35→17:02)
[2016-09-17] MEDS: ULTRAM PO PRN ×2 (07:35→17:01)
[2016-09-17 07:45] LABS: INR 1.07; PROTIME 11.3 Seconds (9.2-11.7)
[2016-09-17] MEDS: COREG PO SCH ×2 (08:45→20:17)
[2016-09-17] MEDS: ICAR-C PLUS PO SCH ×2 (08:46→20:18)
[2016-09-17] MEDS: APRESOLINE PO SCH ×2 (08:46→20:17)
[2016-09-17] MEDS: PROSCAR PO SCH (08:46)
[2016-09-17] MEDS: CYMBALTA PO SCH (08:46)
[2016-09-17] MEDS: AMARYL PO SCH ×2 (08:46→20:17)
[2016-09-17] MEDS: UROXATRAL PO SCH (08:47)
[2016-09-17] MEDS ORDERED: ASPIRIN EC PO SCH (09:00)
--- NOTE | 2016-09-17 15:58 | Diag Imaging Result Doc PS360 ---
EXAM: CHEST-2 VIEWS HISTORY: POST THORA RT SIDE TECHNIQUE: Two views. Inspiration expiration. No pneumothorax is appreciated post thoracentesis. COMPARISON: 09/16/2016 FINDINGS: There is cardiomegaly with bilateral pleural effusions. Bilateral pleural effusions have increased from the prior study 05/16/2016. No pneumothorax is appreciated post thoracentesis. IMPRESSION: No evidence for pneumothorax. Bilateral pleural effusions. Electronically signed by Pilar Murray 09/17/2016 3:56 PM
[2016-09-17] MEDS ORDERED: LABETALOL IV PRN (16:03)
--- NOTE | 2016-09-17 16:10 | CONSULTATION ---
DATE OF CONSULTATION: 09/17/2016 IMPRESSION: 1. Acute on chronic heart failure of mixed etiology. Patient has right-sided heart failure and left-sided diastolic heart failure. 2. Atherosclerotic coronary disease. 3. Hypertension. 4. Chronic kidney disease. 5. Obstructive sleep apnea. 6. Type 2 diabetes mellitus. RECOMMENDATIONS: 1. I agree with plan for thoracentesis. 2. I agree with diuresis. HISTORY: This is a 70-year-old, white male with past history of chronic congestive heart failure of mixed etiology, chronic kidney disease, hypertension, obstructive sleep apnea, previous atrial fibrillation, and atherosclerotic coronary disease who was admitted for further management of exacerbation of congestive heart failure. He has had some shortness of breath in the last several days. He also had some right eye discomfort. He went to the ER and was found to have evidence of exacerbation of congestive heart failure with bilateral pleural effusions. Thoracentesis is planned as well as diuresis. He denies any chest pain. There has been no orthopnea. D-dimer was elevated in the emergency room but CT angiography was negative for evidence of pulmonary embolus. PAST MEDICAL HISTORY: 1. Chronic congestive heart failure, mixed etiology with chronic left ventricular diastolic heart failure and tendency for cor pulmonale. 2. Atherosclerotic coronary disease mild in nature. 3. Paroxysmal atrial fibrillation. 4. Hypertension. 5. Hyperlipidemia. 6. Obstructive sleep apnea. 7. Type 2 diabetes mellitus. 8. Nephrolithiasis. 9. History of previous gastrointestinal bleed. PAST SURGICAL HISTORY: 1. Cholecystectomy. 2. Hernia repair. 3. Prostate biopsy. 4. Lithotripsy. ALLERGIES: He has no known drug allergies. MEDICATIONS: Prior to admission as listed. SOCIAL HISTORY: He quit smoking 30 years ago. He does not use alcohol. FAMILY HISTORY: Negative for premature coronary disease. REVIEW OF SYSTEMS: Pulmonary: Noteworthy for exertional dyspnea but negative for orthopnea. Gastrointestinal: Negative. Constitutional: Noteworthy for 40 pound weight loss over the past year with patient indicating that he has been trying to lose weight. Appetite is good. Remainder of review of systems: Negative/noncontributory with 14 total systems reviewed. PHYSICAL EXAMINATION: General: This is an older white male in no distress. Vital Signs: Blood pressure 159/81, heart rate 76 and regular, oxygen saturation 93% on room air, temperature 98.2 degrees. HEENT Examination: Extraocular movements intact. Mucous membranes are moist. Neck: Supple. Jugular venous distention is present consistent with central venous pressure of 10- 12. Lungs: Auscultation of the chest reveals diminished breath sounds bilaterally in the bases. Cardiac Examination: Reveals a regular rate and rhythm without appreciable murmur or gallop. Abdomen: Soft, nontender. Bowel sounds normal. Extremities: Demonstrate trace edema in the lower extremities. Neurologic Examination: Reveals him to be alert, fully oriented. Speech is fluent. Moves all 4 extremities equally well. Skin: Warm and dry. Psychiatric Examination: Reveals mood to be appropriate. DIAGNOSTIC DATA: ECG demonstrates normal sinus rhythm and inferolateral ST and T-wave abnormality, consider inferolateral ischemia. No acute change on ECG evident. LABORATORY DATA: BUN 35, creatinine 2.1, hematocrit 32.3, potassium 3.2, B-type natriuretic peptide level 3697, troponin-T 0.025. cc: Rolando Escobedo MD
--- NOTE | 2016-09-17 16:24 | CONSULTATION ---
DATE OF CONSULTATION: 09/17/2016 CONSULTING PHYSICIAN: Dr. Escobar REASON FOR CONSULTATION: Chronic kidney disease, assist with management. REASON FOR ADMISSION: CHF exacerbation, bilateral pleural effusions, uncontrolled hypertension, acute on chronic kidney disease. HISTORY OF PRESENT ILLNESS: This is a 70-year-old gentleman with a past medical history of CKD 3 with a baseline creatinine of 1.7 to 2.0. He was last seen in our office in July 2016 with a creatinine of 2.2. The patient states that over the last several days he has been having issues with worsening edema and shortness of breath. He came to the emergency room for workup. It was found that he had bilateral pleural effusions and was admitted was treated and has been treated with Lasix. The patient's creatinine on admission was 2.2. Today, his creatinine is 2.1. The patient did undergo a CT angiogram yesterday. It was found that he had pleural effusions but no pulmonary emboli. He had a urinalysis that was bland. We have been asked to see him for further work up and assist with his treatment. PAST MEDICAL HISTORY: 1. Chronic kidney disease stage 3 with a baseline creatinine of 1.7-2.0. 2. Hypertension. 3. Coronary artery disease. 4. Obstructive sleep apnea. 5. History of CVA. 6. Type 2 diabetes. 7. Nephrolithiasis. 8. Iron-deficiency anemia. Followed by Hematology/Oncology. 9. Previous history of GI bleed. SURGICAL HISTORY: Cholecystectomy, hernia repair, prostate biopsy, lithotripsy. ALLERGIES: No known drug allergies. HOME MEDICATIONS: Uroxatral, aspirin, Lipitor, Coreg, Cymbalta, finasteride, Lasix, glimepiride, Apresoline, Icar, Ativan and Klor-Con. FAMILY HISTORY: Coronary artery disease, CVA. SOCIAL HISTORY: Quit smoking 30 years ago. No ETOH for over 40 years. He continues to use chewing tobacco. No illicit drug use. REVIEW OF SYSTEMS: Shortness of breath. Weakness. PHYSICAL EXAMINATION: Vital Signs: Temperature 97.9 degrees, pulse 71, respiratory 16, blood pressure 156/71, intake 700 mL. Output has not been measured. He is voiding. General: This is an elderly gentleman sitting up in bed. He is awake, alert, in no acute distress. HEENT: Normocephalic. Atraumatic. His oral mucosa is moist. Tongue is midline. SHEA , conjunctivae pale. Neck: Supple. Trachea midline. He has some trace JVD. Cardiovascular : Regular rate and rhythm. There is no murmur or gallop appreciated. Pulmonary: He has equal excursion. He has decreased breath sounds to the bases. He has no crackle or rales. Abdomen: Flat, soft, positive bowel sounds. Genitourinary: Not inspected. He is voiding. Extremities: He has trace pretibial edema. No clubbing or cyanosis. Vascular changes noted. Integumentary: Skin is warm and dry. Neurologic: Grossly nonfocal. LAB DATA: WBC 6.2, hemoglobin 10.2, hematocrit 32.3, platelet count of 298, 000. Sodium 139, potassium 3.2, CO2 27, BUN 35, creatinine 2.1. Calcium 8.7, albumin 2.8. CTA showed pleural effusion. ASSESSMENT AND PLAN: 1. Chronic kidney disease stage 3. His creatinine is really close to his baseline over the last several months. He has no indication for intervention at this time. We will continue to monitor labs. 2. Electrolytes, acid-base balance. These are acceptable. 3. Anemia. Hemoglobin is stable. He is followed by hematology/oncology as an outpatient. 4. Fluid volume. He is not overloaded. On exam, he does have some decreased breath sounds noted. 5. Hypertension mildly elevated. Home medications have been restarted. Understand plan to have cardiology follow. Thank you for the consult. Seen, data reviewed, discussed with Anthony Lake on 09/17/16. I agree with the above assessment and plan of care. rg Dictated by JOSE Muhammad for Jason Nunn MD cc: Jason Nunn MD [facility]
[2016-09-17 16:30] LABS: TOTAL PROT BODY FLUID 4.6 g/dL
--- NOTE | 2016-09-17 16:36 | PROGRESS NOTE ---
DATE: 09/17/2016 SUBJECTIVE: The patient is breathing a little bit better, had been 91%-93% on room air.Cardiovascular: Regular rate and rhythm. Pulmonary: Bilateral breath sounds. Clear to auscultation. GI: Soft, nontender, nondistended. Bowel sounds are positive. Extremities: No clubbing or cyanosis. Lymphatics: No peripheral edema. Neurological: Nonfocal. LABORATORY DATA: White count is 6, hemoglobin and hematocrit 10 and 32, platelets 298,000. Coagulations are okay. Potassium 3.2, creatinine 2.1. BNP is 3697. PROBLEM LIST: 1. Congestive heart failure exacerbation, diastolic, acute. We will continue diuresis and follow. Cardiology is managing. 2. Uncontrolled hypertension. We will continue regular medications. 3. Bilateral pleural effusions. He underwent thoracentesis today, got about a liter of fluid off and sent off for analysis. 4. Atrial fibrillation. Appears to be rate controlled. He is not currently on long-term anticoagulation presumably secondary to recent gastrointestinal bleed. We will continue to follow. 5. Acute on chronic renal failure. Appears to be stable. Continue to monitor. 6. Disposition. Pending his clinical status, probably here another day to 2 days. He is on nitroglycerin, we will likely need to adjust that accordingly. cc: Bharat Escobar MD
[2016-09-17 17:26] LABS: SPECIMEN PLEURAL FLUID
[2016-09-17 17:27] LABS: DIFF NEEDED? YES; MONOS 29 %; POLYS 71 %; WBC BF 1352 /cumm
[2016-09-17] MEDS: LIPITOR PO SCH (20:17)
[2016-09-17] MEDS: ATIVAN PO SCH (20:18)
[2016-09-18] MEDS: NITROGLYCERIN TOP SCH ×3 (02:06→11:37)
[2016-09-18] MEDS: ULTRAM PO PRN ×2 (02:33→14:23)
[2016-09-18] MEDS: LASIX IV SCH (05:36)
[2016-09-18 05:55] LABS: HEMATOCRIT 33.3 % (42.0-52.0); HEMOGLOBIN 10.7 g/dL (14.0-18.0); MCH 27.9 PG (27-31); MCHC 32.1 g/dL (33-37); MCV 86.7 FL (81-99); MPV 9.6 FL (7.4-10.4); RBC 3.84 XMIL (4.7-6.1)
[2016-09-18 06:02] LABS: CALCIUM 8.9 mg/dL (8.8-10.2); POTASSIUM 3.1 mmol/L (3.5-5.1)
--- NOTE | 2016-09-18 06:05 | Diag Imaging Result Doc PS360 ---
EXAM: CHEST-PORTABLE HISTORY: dyspnea TECHNIQUE: Portable COMPARISON: 09/17/2016 FINDINGS: Mild increased interstitial markings in the left base believed to be atelectasis although there could be small underlying infiltrate. Findings are slightly more pronounced than on the prior study. There is a small left pleural effusion. Heart is mildly enlarged. There are scattered granuloma. No pneumothoraces. IMPRESSION: Mild interval worsening in the left base. Electronically signed by Toan Montesinos 09/18/2016 6:03 AM
[2016-09-18] MEDS: HUMULIN R SUBQ SCH ×3 (06:06→16:21)
[2016-09-18] MEDS: UROXATRAL PO SCH (09:03)
[2016-09-18] MEDS: CYMBALTA PO SCH (09:03)
[2016-09-18] MEDS: ICAR-C PLUS PO SCH ×2 (09:04→20:12)
[2016-09-18] MEDS: PROSCAR PO SCH (09:04)
[2016-09-18] MEDS: APRESOLINE PO SCH ×2 (09:04→20:12)
[2016-09-18] MEDS: AMARYL PO SCH ×2 (09:04→20:12)
[2016-09-18] MEDS: COREG PO SCH ×2 (09:04→20:13)
--- NOTE | 2016-09-18 10:36 | PROGRESS NOTE ---
DATE: 09/18/2016 SUBJECTIVE: He is feeling well today. No shortness of breath. He states he is somewhat sore following his procedure yesterday. OBJECTIVE: Vital Signs: Blood pressure 168/83, heart rate 96, respiration 18, afebrile. Intake 500 mL. Output 1.8 liters. General: No acute distress. Skin: Warm and dry. HEENT and Neck: Conjunctivae are pink. The neck veins are not visible. Oropharynx is dry. Heart: Regular without gallops. Lungs: Have equal breath sounds with a few basilar crackles on the right. No wheezes or retractions. Abdomen: Soft, nontender. Bowel sounds are present. Extremities: Have 1+ edema. No clubbing or cyanosis. LABORATORY DATA: Sodium 137, potassium 3.1, chloride 94, bicarbonate 27, BUN 47, creatinine 2.5. IMPRESSION AND PLAN: 1. Chronic kidney disease. His creatinine has risen modestly in the context of diuresis. Baseline creatinine 1.7 to 2. Continue current care. 2. Electrolytes are acceptable. 3. Acid-base in target. 4. Anemia within target. 5. Hypertension, above target, but we will not titrate his medications as long as were diuresing. cc: Jason Nunn MD
[2016-09-18] MEDS ORDERED: KLOR-CON PO ONE (15:28)
--- NOTE | 2016-09-18 15:42 | PROGRESS NOTE ---
DATE: 09/18/2016 CARDIOLOGY FOLLOW-UP NOTE: SUBJECTIVE: Patient denies dyspnea or chest discomfort. He is status post thoracentesis on the right. OBJECTIVE: Vital Signs: Blood pressure 135/62, heart rate 84 and regular, oxygen saturation 94% on room air. Neck: Jugular venous distention is not apparent. Chest: Auscultation of chest reveals diminished breath sounds at the bases bilaterally with better aeration on the right base. Cardiac: Exam reveals a regular rate and rhythm without appreciable murmur or gallop. There is no evidence of peripheral edema. LABORATORY DATA: Includes a BUN of 47, creatinine 2.5. IMAGING: Echocardiography performed in April indicates left ventricle hypertrophy, normal left ventricular ejection fraction and right ventricular enlargement. IMPRESSION: 1. Acute on chronic congestive heart failure of mixed etiology with right-sided congestive heart failure and left-sided diastolic heart failure. Patient improving with thoracentesis. 2. Chronic kidney disease. Creatinine has increased with diuresis. 3. Atherosclerotic coronary disease. 4. Hypertension. 5. Obstructive sleep apnea. 6. Type 2 diabetes mellitus. RECOMMENDATIONS: 1. Suggest slowing diuresis to a more gradual rate. 2. Ultimately patient could be managed further as an outpatient soon. However it would be prudent to see his renal function stable prior to discharge. cc: Rolando Escobedo MD
[2016-09-18 19:29] VITALS: BP 157/60
[2016-09-18] MEDS: LIPITOR PO SCH (20:12)
[2016-09-18] MEDS: ATIVAN PO SCH (20:14)
[2016-09-19] MEDS ORDERED: LASIX PO SCH (09:00)
--- NOTE | 2016-10-12 00:02 | DISCHARGE SUMMARY ---
ADMISSION DATE: 09/16/2016 DISCHARGE DATE: 09/18/2016 DISCHARGE DIAGNOSES: 1. Congestive heart failure exacerbation, diastolic. 2. Uncontrolled hypertension. 3. Bilateral pleural effusions. 4. Atrial fibrillation. 5. Acute on chronic renal failure. CONSULTATIONS: 1. Dr. Escobedo, cardiology. 2. Dr. Nunn, nephrology. PROCEDURES: Thoracentesis which he underwent on the 2nd which about a liter was removed. HOSPITAL COURSE: Briefly, this is a 70-year-old male presenting with shortness of breath. He is followed by Dr. Butt. He came in with bilateral pleural effusions, interstitial edema. Recent echocardiogram was actually not that remarkable. Cardiology and renal services were consulted. Dr. Escobedo recommended thoracentesis and continued diuresis. Dr. Nunn recommended continue treatment plan. He underwent thoracentesis on the 2nd, about a liter was removed which he tolerated without difficulty. Repeat chest x-ray on the 3rd showed improvement. On the 3rd, his physical exam was stable. Blood pressure 157/60, heart rate of 93, sats were 91-94% on room air. Clinically, he was felt stable for discharge. DISCHARGE MEDICATIONS: Alfuzosin 10 daily, aspirin 81 daily, Lipitor 20 daily, Coreg 12.5 b.i.d., Cymbalta 60 daily, Proscar 5 daily, Lasix 80 daily, Amaryl 4 b.i.d., hydralazine 100 b.i.d., Icar C daily, Imdur 30 daily which was a new medication, Ativan 0.5 at bedtime and Klor-Con 20 daily. DISCHARGE INSTRUCTIONS: Was told to follow with Cardiology in 2-[address] Nunn in 1-[address] Meek. TIME: 35 minute discharge. cc: Bhaart Escobar MD
--- NOTE | 2016-10-12 00:40 | OPERATIVE NOTE ---
PROCEDURE DATE: PROCEDURE: Thoracentesis. INDICATION: Pleural effusion. DESCRIPTION OF PROCEDURE: Patient underwent ultrasound with Marcaine. He was anesthetized locally with 1% lidocaine. Catheter was placed. About a liter of dark sabillon fluid was removed. Tolerated procedure without difficulty. Post chest x-ray showed no significant pneumothorax. Samples were sent off. cc: Bharat Escobar MD
== END 2016-09-18 20:35 | disposition home or self-care (01) ==
LOC: ED 11:40 → 4N 16:13
PROVIDERS: ATTEND Internal Medicine